=== PATIENT | male | born 1965 | race Caucasian/White ===

== ENCOUNTER 2018-12-20 08:41 | Inpatient (IN) | payer BC ==
--- NOTE | 2018-12-20 08:53 | EKG REPORT ---
SEVERITY:- NORMAL ECG - SINUS RHYTHM : Confirmed by: Chelita Lora MD 20-Dec-2018 08:53:07
--- NOTE | 2018-12-20 09:05 | ER Document Report ---
ED General - General Chief Complaint: Chest Pain Stated Complaint: DIFFICULTY BREATHING Time Seen by Provider: 12/20/18 09:04 - HPI Notes: 53 y/o presenting to ED for evaluation of chest pain and shortness of breath he has a h/o asthma but denies any cardiac history w/ recent negative stress testing and echocardiogram done as outpatient he denies leg swelling he tells me he started feeling poorly yesterday and worsened overnight his rescue inhaler did not change his symptoms - Related Data Allergies/Adverse Reactions: codeine Allergy (Verified 12/20/18 08:42) Past Medical History - Social History Smoking Status: Unknown if Ever Smoked Family History: Reviewed & Not Pertinent Review of Systems - Review of Systems Constitutional: No symptoms reported EENT: No symptoms reported Cardiovascular: Chest pain Respiratory: Cough, Hurts to breathe, Short of breath Gastrointestinal: No symptoms reported Genitourinary: No symptoms reported Male Genitourinary: No symptoms reported Musculoskeletal: No symptoms reported Skin: No symptoms reported Hematologic/Lymphatic: No symptoms reported Neurological/Psychological: No symptoms reported Physical Exam - Vital signs Vitals: Temp Pulse Resp BP Pulse Ox 97.7 F 85 16 76/54 L 97 12/20/18 08:58 12/20/18 08:58 12/20/18 08:58 12/20/18 08:58 12/20/18 08:58 Interpretation: Normal - General General appearance: Alert, Other - appears uncomfortable - HEENT Head: Normocephalic, Atraumatic Eyes: Normal Pupils: PERRL - Respiratory Respiratory status: No respiratory distress Chest status: Nontender Breath sounds: Normal Chest palpation: Normal - Cardiovascular Rhythm: Regular Heart sounds: Normal auscultation Murmur: No - Abdominal Inspection: Normal Distension: No distension Bowel sounds: Normal Tenderness: Nontender Organomegaly: No organomegaly - Back Back: Normal, Nontender - Extremities General upper extremity: Normal inspection, Nontender, Normal color, Normal ROM, Normal temperature General lower extremity: Normal inspection, Nontender, Normal color, Normal ROM, Normal temperature, Normal weight bearing. No: Cheyenne's sign - Neurological Neuro grossly intact: Yes Cognition: Normal Orientation: AAOx4 Chris Coma Scale Eye Opening: Spontaneous [place] Coma Scale Verbal: Oriented [place] Coma Scale Motor: Obeys Commands Chris Coma Scale Total: 15 Speech: Normal Motor strength normal: LUE, RUE, LLE, RLE Sensory: Normal - Psychological Associated symptoms: Normal affect, Normal mood - Skin Skin Temperature: Warm Skin Moisture: Dry Skin Color: Normal Course - Re-evaluation Re-evalutation: 12/20/18 09:12 hypotensive with sob and chest pain will obtain CTA to evaluate for PE IVF bolus ordered as well as inhaler and steroid his lungs however are remarkably clear on exam 12/20/18 12:04 patient is septic from pneumonia bp improved w/ ivf abx started in ED admit requested - Vital Signs Vital signs: Temp Pulse Resp BP Pulse Ox 97.7 F 85 29 H 88/74 L 93 12/20/18 08:58 12/20/18 08:58 12/20/18 11:10 12/20/18 11:10 12/20/18 11:10 - Laboratory Result Diagrams: 12/20/18 07:12 12/20/18 07:12 Laboratory results interpreted by me: 12/20/18 12/20/18 12/20/18 07:12 07:12 07:12 WBC 17.1 H Band Neutrophils % 10 H Lymphocytes % (Manual) 8 L Abs Neuts (Manual) 14.5 H Potassium 3.5 L BUN 33 H Creatinine 1.81 H Est GFR ( Amer) 48 L Est GFR (MDRD) Non-Af 39 L Glucose 147 H Lactic Acid Total Bilirubin 2.1 H Creatine Kinase 276 H NT-Pro-B Natriuret Pep 1320 H 12/20/18 09:33 WBC Band Neutrophils % Lymphocytes % (Manual) Abs Neuts (Manual) Potassium BUN Creatinine Est GFR ( Amer) Est GFR (MDRD) Non-Af Glucose Lactic Acid 3.1 H Total Bilirubin Creatine Kinase NT-Pro-B Natriuret Pep - Diagnostic Test Radiology reviewed: Reports reviewed - EKG Interpretation by Me EKG shows normal: Sinus rhythm Rate: Normal Rhythm: NSR Additional EKG results interpreted by me: 12/20/18 09:[address] or T wave changes - Consults No standard instances Time consulted: 12:05 - hospitalist called Reason for consultation: 12/20/18 12:05 pneumonia/sepsis Critical Care Note - Critical Care Note Total time excluding time spent on procedures (mins): 40 Comments: patient is septic requiring large volume ivf resuscitation and antibiotic initiation in ED. he also required supplemental oxygen to support maintaining a sat >90 Discharge - Discharge Clinical Impression: Sepsis associated hypotension, Hypoxia Pneumonia Qualifiers: Pneumonia type: due to unspecified organism Laterality: left Lung location: lower lobe of lung Qualified Code(s): J18.1 - Lobar pneumonia, unspecified organism Condition: Stable Disposition: ADMITTED INPATIENT Admitting Provider: Isabella (Hospitalist) Unit Admitted: [facility]
[2018-12-20] MEDS ORDERED: NORMAL SALINE 1000 ML 1,000 ML IV ONE ×3 (09:10→11:13)
[2018-12-20] MEDS ORDERED: METHYLPREDNISOLONE INJ 125 MG/2 ML SDV IV ONE (09:13)
[2018-12-20] MEDS ORDERED: IPRATROPIUM/ALBUTEROL 0.5-2.5 MG/3 ML AMPUL NEB ONE ×3 (09:14→12:42)
--- NOTE | 2018-12-20 09:36 | RADIOLOGY REPORT (SQ) ---
EXAM DESCRIPTION: CHEST SINGLE VIEW COMPLETED DATE/TIME: 12/20/2018 9:17 am REASON FOR STUDY: sob COMPARISON: None. EXAM PARAMETERS: NUMBER OF VIEWS: One view. TECHNIQUE: Single frontal radiographic view of the chest acquired. RADIATION DOSE: NA LIMITATIONS: None. FINDINGS: LUNGS AND PLEURA: Heterogeneous opacity of the left lung base. Possible small left pleura l effusion. MEDIASTINUM AND HILAR STRUCTURES: No masses. Contour normal. HEART AND VASCULAR STRUCTURES: Cardiomegaly. BONES: No acute findings. HARDWARE: None in the chest. OTHER: No other significant finding. IMPRESSION: Heterogeneous opacity of the left lung base, concerning for infection or aspiration. Po ssible small left pleural effusion. Cardiomegaly. TECHNICAL DOCUMENTATION: JOB ID: [id number] [employer]- All Rights Reserved Reading location - IP/workstation name: [email or web address]
[2018-12-20] MEDS ORDERED: VANCOMYCIN HCL INJ 1000 MG VIAL IV ONE (10:11)
[2018-12-20] MEDS ORDERED: PIPERACILLIN/TAZOBACTAM 4.5 GM VIAL IV ONE (10:11)
[2018-12-20 10:13] LABS: HEMATOCRIT 40.5 % (37.9-51.0); HEMOGLOBIN 13.6 g/dL (13.5-17.0); MEAN CORPUSCULAR HEMOGLOBIN 29.8 pg (27.0-33.4); MEAN CORPUSCULAR HGB CONC 33.5 g/dL (32.0-36.0); MEAN CORPUSCULAR VOLUME 89 fl (80-97); PLATELET COUNT 155 10^3/uL (150-450); RED BLOOD COUNT 4.57 10^6/uL (4.35-5.55); RED CELL DISTRIBUTION WIDTH 13.8 % (11.5-14.0); WHITE BLOOD COUNT 17.1 10^3/uL (4.0-10.5)
[2018-12-20] MEDS ORDERED: FENTANYL CITRATE INJ/PF 100 MCG/2 ML AMPUL IV ONE (10:14)
[2018-12-20 10:27] LABS: ALBUMIN 3.8 g/dL (3.5-5.0); ALKALINE PHOSPHATASE 76 U/L (38-126); ANION GAP 13 (5-19); ASPARTATE AMINO TRANSFERASE 39 U/L (17-59); BILIRUBIN,DIRECT 0.4 mg/dL (0.0-0.4); BILIRUBIN,TOTAL 2.1 mg/dL (0.2-1.3); BLOOD UREA NITROGEN 33 mg/dL (7-20); CALCIUM 9.7 mg/dL (8.4-10.2); CARBON DIOXIDE 26 mmol/L (22-30); CHLORIDE 101 mmol/L (98-107); CREATINE KINASE 276 U/L (55-170); GLUCOSE 147 mg/dL (75-110); POTASSIUM 3.5 mmol/L (3.6-5.0); TOTAL PROTEIN 6.4 g/dL (6.3-8.2)
[2018-12-20 10:36] LABS: CREATINE KINASE MB 4.19 ng/mL (<4.55); NT PRO BNP 1320 pg/mL (5-900)
[2018-12-20 10:37] LABS: TROPONIN I < 0.012 ng/mL
[2018-12-20 11:19] LABS: ABSOLUTE LYMPHOCYTES# (MANUAL) 1.5 10^3/uL (0.5-4.7); BAND NEUTROPHILS % (MANUAL) 10 % (3-5); BASOPHILS % (MANUAL) 0 % (0-2); EOSINOPHILS % (MANUAL) 0 % (0-6); LYMPHOCYTES % (MANUAL) 8 % (13-45); MONOCYTES % (MANUAL) 6 % (3-13); OVALOCYTES 1+; PLATELET COMMENT ADEQUATE; POIKILOCYTOSIS 1+; SEGMENTED NEUTROPHILS % (MAN) 75 % (42-78); TOTAL CELLS COUNTED 100
--- NOTE | 2018-12-20 11:57 | RADIOLOGY REPORT (SQ) ---
EXAM DESCRIPTION: CTA CHEST COMPLETED DATE/TIME: 12/20/2018 11:37 am REASON FOR STUDY: chest pain/sob COMPARISON: AP view of the chest from 12/20/2018 TECHNIQUE: CT scan of the chest performed using helical scanning technique with dynamic intravenous contrast injection. Images reviewed with lung, soft tissue and bone windows. Reconstructed coronal and sagittal MPR images reviewed. Additional 3 dimensional post-processing performed to develop Maximal Intensity Projection images (VT P). All images stored on PACS. All CT scanners at this facility use dose modulation, iterative reconstruction, and/or weight based d osing when appropriate to reduce radiation dose to as low as reasonably achievable (ALARA). [facility]: Dose Right [facility]: CareDose [facility]: Dose Right [facility]: Teradose 4D [facility]: Zootcard CONTRAST TYPE AND DOSE: contrast/concentration: Isovue 300.00 mg/ml; Total Contrast Delivered: 68.0 ml; Total Saline Delivered: 80.0 ml Contrast bolus optimized for the pulmonary arteries. Not diagnostic for the aorta. RENAL FUNCTION: Creatinine 1.81 milligrams/deciliter RADIATION DOSE: CT Rad equipment meets quality standard of care and radiation dose reduction techniq ues were employed. CTDIvol: 19.8 - 20.2 mGy. DLP: 706 mGy-cm. . LIMITATIONS: None. FINDINGS: LUNGS AND PLEURA: Alveolar consolidation in the left lower lobe with interspersed air bron chograms and without associated volume loss. The trachea and main bronchi are patent. There is no p ulmonary nodule or mass. There is no pleural effusion, calcification or thickening. AORTA AND GREAT VESSELS: No aneurysmal dilatation or dissection. HEART: No cardiomegaly or pericardial effusion. PULMONARY ARTERIES: No pulmonary embolus. HILAR AND MEDIASTINAL STRUCTURES: Enlarged left hilar lymph nodes measuring up to 11 mm in short axis diameter. There is no enlarged mediastinal adenopathy. HARDWARE: None in the chest. UPPER ABDOMEN: No acute findings. THYROID AND OTHER SOFT TISSUES: No mass or adenopathy. BONES: No acute findings. 3D MIPS: Confirm above findings. OTHER: No other finding. IMPRESSION: Alveolar consolidation in the left lower lobe concerning for pneumonia. No pulmonary em bolus. COMMENT: Quality ID # [id number]: Final reports with documentation of one or more dose reduction techniques (e.g., Automated exposure control, adjustment of the mA and/or kV according to patient size, use of iterative reconstruction technique) TECHNICAL DOCUMENTATION: JOB ID: [id number] [employer]- All Rights Reserved Reading location - IP/workstation name: [email or web address]
[2018-12-20] MEDS ORDERED: ACETAMINOPHEN 325 MG TABLET PO PRN (13:06)
[2018-12-20] MEDS ORDERED: NORMAL SALINE 1000 ML 1,000 ML IV PRN (13:06)
[2018-12-20] MEDS ORDERED: ACETAMINOPHEN 325 MG SUPP.RECT PR PRN (13:06)
[2018-12-20 13:20] LABS: ARTERIAL BLOOD BASE EXCESS -4.6 mmol/L; ARTERIAL BLOOD FIO2 4L; ARTERIAL BLOOD H2CO3 1.02 mmol/L (1.05-1.35); ARTERIAL BLOOD HCO3 19.6 mmol/L (20-24); ARTERIAL BLOOD O2 SATURATION 92.1 % (94-98); ARTERIAL BLOOD PCO2 33.8 mmHg (35-45); ARTERIAL BLOOD PH 7.38 (7.35-7.45); ARTERIAL BLOOD PO2 63.3 mmHg (80-100); ARTERIAL BLOOD TOTAL CO2 20.7 mmol/L (23-27)
[2018-12-20] MEDS ORDERED: VANCOMYCIN HCL 0 MG in DEXTROSE 5%-WATER 250 ML IV NR (13:30)
[2018-12-20] MEDS: IPRATROPIUM/ALBUTEROL 0.5-2.5 MG/3 ML AMPUL NEB SCH ×2 (14:18→20:45)
[2018-12-20 14:41] LABS: CHOLESTEROL 115.55 mg/dL (0-200); TRIGLYCERIDES 77 mg/dL (<150)
[2018-12-20 14:51] LABS: DIRECT LDL 65 mg/dL (<100)
[2018-12-20 16:03] LABS: APPEARANCE,URINE SLIGHTLY-CLOUDY; BILIRUBIN,URINE NEGATIVE (NEGATIVE); COLOR,URINE YELLOW; GLUCOSE, URINE NEGATIVE (NEGATIVE); KETONES,URINE NEGATIVE (NEGATIVE); LEUKOCYTE ESTERASE,URINE NEGATIVE (NEGATIVE); NITRITE,URINE NEGATIVE (NEGATIVE); PROTEIN,URINE NEGATIVE (NEGATIVE); URINE SPECIFIC GRAVITY 1.042; UROBILINOGEN,URINE NEGATIVE mg/dL (<2.0)
[2018-12-20 16:50] LABS: A TYPE INFLUENZA AG NEGATIVE (NEGATIVE); B INFLUENZA AG NEGATIVE (NEGATIVE)
[2018-12-20] MEDS: PANTOPRAZOLE SODIUM 40 MG TABLET.DR PO SCH (18:12)
[2018-12-20] MEDS: DOCUSATE SODIUM 100 MG CAPSULE PO SCH (18:12)
[2018-12-20] MEDS: PIPERACILLIN SODIUM/TAZOBACTAM 4.5 GM in NORMAL SALINE 100 ML IV SCH (18:16)
--- NOTE | 2018-12-20 18:55 | PDOC H&P ---
History of Present Illness Admission Date/PCP: 12/20/18 12:36 History of Present Illness: FRANTZ WORTHINGTON is a 53 year old male past medical history of asthma on inhalers, never been intubated not on home O2, had recent cardiac work-up, with negative stress test and echo. Presented to ED complaining of shortness of breath, fever, chills nonproductive cough and back pain x1 day, denies any sick contacts or recent travel. In ED he was noted to be hypotensive, hypoxic, with elevated lactic acid. He was started on vancomycin, Zosyn, 3 L NS and hospitalist was consulted for admission. Lactic acid 3.1, 4.3, troponins negative. Lipid panel WNL. TSH WNL. proBNP 1320, WBC 17.1, Plt 155. pH 7.38, PCO2 33.8, PO2 63.3, PO2 89 on RA. RR 19-36, SBP 80s. CTA chest positive for little consolidation in the left lower lobe concerning for pneumonia. No pulmonary embolus. Past Medical History Pulmonary Medical History: Reports: Asthma Social History Smoking Status: Never Smoker Frequency of Alcohol Use: None Hx Recreational Drug Use: No Drugs: None Hx Prescription Drug Abuse: No Family History Family History: Reviewed & Not Pertinent Parental Family History Reviewed: Yes Children Family History Reviewed: Yes Sibling(s) Family History Reviewed.: Yes Medication/Allergy Home Medications: Albuterol Sulfate [Proair Hfa Inhalation Aerosol 8.5 gm Mdi] 1 puff IH Q4 PRN 12/20/18 Budesonide/Formoterol Fumarate [Symbicort Hfa 160-4.5 Mcg Inhaler 6 gm] 2 puff IH Q12 12/20/18 Ergocalciferol (Vitamin D2) [Vitamin D2] 2,000 unit PO DAILY 12/20/18 Fluticasone Propionate [Flovent HFA 220 mcg MDI] 1 puff IH BID 12/20/18 Lisinopril/Hydrochlorothiazide [Lisinopril-Hctz 20-12.5 mg Tab] 1 each PO DAILY 12/20/18 Montelukast Sodium [Singulair 10 mg Tablet] 10 mg PO QHS 12/20/18 Naproxen Sodium [Aleve] 220 mg PO DAILYP PRN 12/20/18 Sertraline HCl [Zoloft] 100 mg PO DAILY 12/20/18 Allergies/Adverse Reactions: codeine Allergy (Verified 12/20/18 08:42) nut - unspecified Allergy (Verified 12/20/18 17:40) tomatoes Allergy (Uncoded 12/20/18 17:40) Review of Systems Review of Systems: as per hpi Physical Exam Vital Signs: Temp Pulse Resp BP Pulse Ox 97.7 F 87 29 H 92/67 L 96 12/20/18 08:58 12/20/18 14:18 12/20/18 15:30 12/20/18 15:30 12/20/18 15:30 Intake & Output 12/19/18 12/20/18 12/21/18 06:59 06:59 06:59 Intake Total 3000 Balance 3000 Weight 97.2 kg General appearance: PRESENT: mild distress, obese Head exam: PRESENT: atraumatic, normocephalic Respiratory exam: PRESENT: clear to auscultation antoine, prolonged expiratory phas, symmetrical, tachypnea. ABSENT: rales, rhonchi, wheezes Extremities exam: PRESENT: full ROM. ABSENT: calf tenderness, clubbing, pedal edema Neurological exam: PRESENT: alert, awake, oriented to person, oriented to place, oriented to time, oriented to situation, CN II-XII grossly intact. ABSENT: motor sensory deficit Skin exam: PRESENT: dry, intact, warm. ABSENT: cyanosis, rash Results Laboratory Results: 12/20/18 07:12 12/20/18 07:12 12/20/18 12/20/18 12/20/18 07:12 07:12 07:12 WBC 17.1 H RBC 4.57 Hgb 13.6 Hct 40.5 MCV 89 MCH 29.8 MCHC 33.5 RDW 13.8 Plt Count 155 Seg Neutrophils % Not Reportable Carbonic Acid HCO3/H2CO3 Ratio ABG pH ABG pCO2 ABG pO2 ABG HCO3 ABG O2 Saturation ABG Base Excess FiO2 Sodium 139.5 Potassium 3.5 L Chloride 101 Carbon Dioxide 26 Anion Gap 13 BUN 33 H Creatinine 1.81 H Est GFR ( Amer) 48 L Glucose 147 H Lactic Acid Calcium 9.7 Total Bilirubin 2.1 H AST 39 Alkaline Phosphatase 76 Total Protein 6.4 Albumin 3.8 Triglycerides 77 Cholesterol 115.55 LDL Cholesterol Direct 65 VLDL Cholesterol 15.0 HDL Cholesterol 46 TSH Urine Color Urine Appearance Urine pH Ur Specific [place] Urine Protein Urine Glucose (UA) Urine Ketones Urine Blood Urine Nitrite Ur Leukocyte Esterase Urine WBC (Auto) Urine RBC (Auto) 12/20/18 12/20/18 12/20/18 07:12 09:33 13:06 WBC RBC Hgb Hct MCV MCH MCHC RDW Plt Count Seg Neutrophils % Carbonic Acid 1.02 L HCO3/H2CO3 Ratio 19:1 ABG pH 7.38 ABG pCO2 33.8 L ABG pO2 63.3 L ABG HCO3 19.6 L ABG O2 Saturation 92.1 L ABG Base Excess -4.6 FiO2 4L Sodium Potassium Chloride Carbon Dioxide Anion Gap BUN Creatinine Est GFR ( Amer) Glucose Lactic Acid 3.1 H Calcium Total Bilirubin AST Alkaline Phosphatase Total Protein Albumin Triglycerides Cholesterol LDL Cholesterol Direct VLDL Cholesterol HDL Cholesterol TSH 1.28 Urine Color Urine Appearance Urine pH Ur Specific [place] Urine Protein Urine Glucose (UA) Urine Ketones Urine Blood Urine Nitrite Ur Leukocyte Esterase Urine WBC (Auto) Urine RBC (Auto) 12/20/18 12/20/18 12/20/18 13:58 15:02 15:40 WBC RBC Hgb Hct MCV MCH MCHC RDW Plt Count Seg Neutrophils % Carbonic Acid HCO3/H2CO3 Ratio ABG pH ABG pCO2 ABG pO2 ABG HCO3 ABG O2 Saturation ABG Base Excess FiO2 Sodium Potassium Chloride Carbon Dioxide Anion Gap BUN Creatinine Est GFR ( Amer) Glucose Lactic Acid 3.1 H 4.3 H Calcium Total Bilirubin AST Alkaline Phosphatase Total Protein Albumin Triglycerides Cholesterol LDL Cholesterol Direct VLDL Cholesterol HDL Cholesterol TSH Urine Color YELLOW Urine Appearance SLIGHTLY-CLOUDY Urine pH 5.0 Ur Specific [place] 1.042 Urine Protein NEGATIVE Urine Glucose (UA) NEGATIVE Urine Ketones NEGATIVE Urine Blood NEGATIVE Urine Nitrite NEGATIVE Ur Leukocyte Esterase NEGATIVE Urine WBC (Auto) 4 Urine RBC (Auto) 2 12/20/18 12/20/18 12/20/18 07:12 07:12 15:02 Creatine Kinase 276 H CK-MB (CK-2) 4.19 Troponin I < 0.012 < 0.012 NT-Pro-B Natriuret Pep 1320 H Impressions: Chest X-Ray 12/20/18 09:04 IMPRESSION: Heterogeneous opacity of the left lung base, concerning for infection or aspiration. Possible small left pleural effusion. Cardiomegaly. Chest/Abdomen CTA 12/20/18 09:11 IMPRESSION: Alveolar consolidation in the left lower lobe concerning for pneumonia. No pulmonary embolus. Assessment and Plan - Diagnosis (1) Sepsis Is this a current diagnosis for this admission?: Yes Plan: Evidenced by Lactic acid 3.1, 4.3, troponins negative. WBC 17.1, Plt 155. pH 7.38, PCO2 33.8, PO2 63.3, PO2 89 on RA. RR 19-36, SBP 80s. Due to underlying pneumonia. Admit to IMCU, volume resuscitation guided by volume status, trend lactic acid, empiric IV antibiotics, sputum culture, blood culture (2) Acute and chronic respiratory failure with hypoxia Is this a current diagnosis for this admission?: Yes Plan: Due to underlying pneumonia complicated by underlying asthma. Admit to IMCU, supplemental oxygen, duo nebs, IV steroids, flutter valve, incentive spirometry, empiric IV antibiotics. (3) Pneumonia Qualifiers: Pneumonia type: due to unspecified organism Laterality: left Lung location: lower lobe of lung Qualified Code(s): J18.1 - Lobar pneumonia, unspecified organism Is this a current diagnosis for this admission?: Yes Plan: As per #2. (4) Obesity Qualifiers: Body mass index: BMI 31.0-31.9 Is this a current diagnosis for this admission?: Yes Plan: TSH WNL. Diet and lifestyle modification recommended. (5) Acute kidney injury superimposed on CKD Is this a current diagnosis for this admission?: Yes
[2018-12-20] MEDS: VANCOMYCIN HCL 1,000 MG in DEXTROSE 5%-WATER 250 ML IV SCH (22:07)
[2018-12-20] MEDS: METHYLPREDNISOLONE INJ 40 MG/1 ML SDV IV SCH (22:07)
[2018-12-20] MEDS: NORMAL SALINE 1000 ML 1,000 ML IV PRN (22:08)
[2018-12-21] MEDS: PIPERACILLIN SODIUM/TAZOBACTAM 4.5 GM in NORMAL SALINE 100 ML IV SCH ×4 (00:15→17:12)
[2018-12-21] MEDS: IPRATROPIUM/ALBUTEROL 0.5-2.5 MG/3 ML AMPUL NEB SCH ×4 (02:35→20:57)
[2018-12-21] MEDS: METHYLPREDNISOLONE INJ 40 MG/1 ML SDV IV SCH ×3 (05:48→21:07)
[2018-12-21] MEDS: PANTOPRAZOLE SODIUM 40 MG TABLET.DR PO SCH ×2 (05:49→16:44)
[2018-12-21] MEDS: NORMAL SALINE 1000 ML 1,000 ML IV PRN ×2 (05:49→21:07)
--- NOTE | 2018-12-21 08:16 | RADIOLOGY REPORT (SQ) ---
EXAM DESCRIPTION: U/S RETROPERITON (RENAL/AORTA) COMPLETED DATE/TIME: 12/21/2018 7:57 am REASON FOR STUDY: kenney COMPARISON: None. TECHNIQUE: Dynamic and static grayscale images acquired of the kidneys and bladder and recorded on P ACS. Additional selected color Doppler and spectral images recorded. LIMITATIONS: None. FINDINGS: RIGHT KIDNEY: Normal size. Normal echogenicity. No solid or suspicious masses. No hydronep hrosis. No calcifications. LEFT KIDNEY: Normal size. Normal echogenicity. No solid or suspicious masses. No hydronephrosis. No calcifications. BLADDER: No masses. OTHER FINDINGS: No other significant finding. IMPRESSION: NORMAL RENAL AND BLADDER ULTRASOUND. TECHNICAL DOCUMENTATION: JOB ID: [id number] [employer]- All Rights Reserved Reading location - IP/workstation name: [email or web address]
[2018-12-21 09:08] LABS: HEMATOCRIT 34.1 % (37.9-51.0); MEAN CORPUSCULAR HEMOGLOBIN 29.4 pg (27.0-33.4); MEAN CORPUSCULAR HGB CONC 33.6 g/dL (32.0-36.0); MEAN CORPUSCULAR VOLUME 88 fl (80-97); PLATELET COUNT 139 10^3/uL (150-450); RED BLOOD COUNT 3.88 10^6/uL (4.35-5.55); WHITE BLOOD COUNT 15.7 10^3/uL (4.0-10.5)
[2018-12-21 09:14] LABS: ALBUMIN 3.1 g/dL (3.5-5.0); ALKALINE PHOSPHATASE 46 U/L (38-126); ANION GAP 10 (5-19); ASPARTATE AMINO TRANSFERASE 28 U/L (17-59); BILIRUBIN,DIRECT 0.3 mg/dL (0.0-0.4); BILIRUBIN,TOTAL 0.9 mg/dL (0.2-1.3); BLOOD UREA NITROGEN 28 mg/dL (7-20); CALCIUM 8.7 mg/dL (8.4-10.2); CARBON DIOXIDE 22 mmol/L (22-30); CHLORIDE 108 mmol/L (98-107); GLUCOSE 200 mg/dL (75-110); POTASSIUM 3.4 mmol/L (3.6-5.0); TOTAL PROTEIN 5.5 g/dL (6.3-8.2)
[2018-12-21 10:07] LABS: HEMOGLOBIN 11.4 g/dL (13.5-17.0)
[2018-12-21 10:09] LABS: ABSOLUTE LYMPHOCYTES# (MANUAL) 1.1 10^3/uL (0.5-4.7); ABSOLUTE MONOCYTES # (MANUAL) 1.1 10^3/uL (0.1-1.4); ANISOCYTOSIS SLIGHT; BAND NEUTROPHILS % (MANUAL) 7 % (3-5); BASOPHILS % (MANUAL) 0 % (0-2); EOSINOPHILS % (MANUAL) 0 % (0-6); LYMPHOCYTES % (MANUAL) 7 % (13-45); MONOCYTES % (MANUAL) 7 % (3-13); PLATELET COMMENT DECREASED; SEGMENTED NEUTROPHILS % (MAN) 79 % (42-78); TOTAL CELLS COUNTED 100
[2018-12-21] MEDS: DOCUSATE SODIUM 100 MG CAPSULE PO SCH ×2 (10:15→17:12)
[2018-12-21] MEDS: VANCOMYCIN HCL 1,000 MG in DEXTROSE 5%-WATER 250 ML IV SCH ×2 (10:15→21:10)
[2018-12-21] MEDS ORDERED: DEXTROSE 50%-WATER 25 GM/50 ML DISP.SYRIN IV PRN ×2 (10:27)
[2018-12-21] MEDS ORDERED: GLUCAGON,HUMAN RECOMB 1 MG INJ IM PRN (10:27)
[2018-12-21] MEDS ORDERED: DEXTROSE 40% GEL 15 GM TUBE PO PRN ×2 (10:27)
--- NOTE | 2018-12-21 10:37 | PDOC PROGRESS REPORT ---
Subjective Progress Note for:: 12/21/18 Subjective:: FRANTZ WORTHINGTON is a 53 year old male past medical history of asthma on inhalers, never been intubated not on home O2, had recent cardiac work-up, with negative stress test and echo. Presented to ED complaining of shortness of breath, fever, chills nonproductive cough and back pain x1 day, denies any sick contacts or recent travel. In ED he was noted to be hypotensive, hypoxic, with elevated lactic acid. He was started on vancomycin, Zosyn, 3 L NS and hospitalist was consulted for admission. Lactic acid 3.1, 4.3, troponins negative. Lipid panel WNL. TSH WNL. proBNP 1320, WBC 17.1, Plt 155. pH 7.38, PCO2 33.8, PO2 63.3, PO2 89 on RA. RR 19-36, SBP 80s. CTA chest positive for little consolidation in the left lower lobe concerning for pneumonia. No pulmonary embolus. 12/21/2018. Significant improvement of his symptoms since yesterday. Patient is comfortably sitting in bed in no apparent distress, back pain has resolved, denies any fever, chills, nausea, vomiting, diarrhea, constipation or any urinary symptoms. SPO2 WNL on RA. SBP low normal asymptomatic. Reason For Visit: SEPSIS Physical Exam Vital Signs: Temp Pulse Resp BP Pulse Ox 98.3 F 80 18 114/57 L 95 12/21/18 04:19 12/21/18 09:18 12/21/18 09:18 12/21/18 04:19 12/21/18 09:18 Intake & Output 12/20/18 12/21/18 12/22/18 06:59 06:59 06:59 Intake Total 4382 Balance 4382 Weight 103.1 kg General appearance: PRESENT: no acute distress, well-developed, well-nourished Head exam: PRESENT: atraumatic, normocephalic Eye exam: PRESENT: conjunctiva pink, EOMI, PERRLA. ABSENT: scleral icterus Ear exam: PRESENT: normal external ear exam Mouth exam: PRESENT: moist, tongue midline Neck exam: ABSENT: carotid bruit, JVD, lymphadenopathy, thyromegaly Respiratory exam: PRESENT: clear to auscultation antoine, prolonged expiratory phas, unlabored. ABSENT: rales, rhonchi, wheezes Cardiovascular exam: PRESENT: RRR. ABSENT: diastolic murmur, rubs, systolic murmur Pulses: PRESENT: normal dorsalis pedis pul Vascular exam: PRESENT: normal capillary refill GI/Abdominal exam: PRESENT: normal bowel sounds, soft. ABSENT: distended, guarding, mass, organolmegaly, rebound, tenderness Rectal exam: PRESENT: deferred Extremities exam: PRESENT: full ROM. ABSENT: calf tenderness, clubbing, pedal edema Neurological exam: PRESENT: alert, awake, oriented to person, oriented to place, oriented to time, oriented to situation, CN II-XII grossly intact. ABSENT: motor sensory deficit Psychiatric exam: PRESENT: appropriate affect, normal mood. ABSENT: homicidal ideation, suicidal ideation Skin exam: PRESENT: dry, intact, warm. ABSENT: cyanosis, rash Results Laboratory Results: 12/21/18 08:19 12/21/18 08:19 12/20/18 12/20/18 12/20/18 07:12 07:12 07:12 WBC 17.1 H RBC 4.57 Hgb 13.6 Hct 40.5 MCV 89 MCH 29.8 MCHC 33.5 RDW 13.8 Plt Count 155 Seg Neutrophils % Not Reportable Carbonic Acid HCO3/H2CO3 Ratio ABG pH ABG pCO2 ABG pO2 ABG HCO3 ABG O2 Saturation ABG Base Excess FiO2 Sodium 139.5 Potassium 3.5 L Chloride 101 Carbon Dioxide 26 Anion Gap 13 BUN 33 H Creatinine 1.81 H Est GFR ( Amer) 48 L Glucose 147 H Lactic Acid Calcium 9.7 Total Bilirubin 2.1 H AST 39 Alkaline Phosphatase 76 Total Protein 6.4 Albumin 3.8 Triglycerides 77 Cholesterol 115.55 LDL Cholesterol Direct 65 VLDL Cholesterol 15.0 HDL Cholesterol 46 TSH Urine Color Urine Appearance Urine pH Ur Specific [place] Urine Protein Urine Glucose (UA) Urine Ketones Urine Blood Urine Nitrite Ur Leukocyte Esterase Urine WBC (Auto) Urine RBC (Auto) 12/20/18 12/20/18 12/20/18 07:12 13:06 13:58 WBC RBC Hgb Hct MCV MCH MCHC RDW Plt Count Seg Neutrophils % Carbonic Acid 1.02 L HCO3/H2CO3 Ratio 19:1 ABG pH 7.38 ABG pCO2 33.8 L ABG pO2 63.3 L ABG HCO3 19.6 L ABG O2 Saturation 92.1 L ABG Base Excess -4.6 FiO2 4L Sodium Potassium Chloride Carbon Dioxide Anion Gap BUN Creatinine Est GFR ( Amer) Glucose Lactic Acid 3.1 H Calcium Total Bilirubin AST Alkaline Phosphatase Total Protein Albumin Triglycerides Cholesterol LDL Cholesterol Direct VLDL Cholesterol HDL Cholesterol TSH 1.28 Urine Color Urine Appearance Urine pH Ur Specific [place] Urine Protein Urine Glucose (UA) Urine Ketones Urine Blood Urine Nitrite Ur Leukocyte Esterase Urine WBC (Auto) Urine RBC (Auto) 12/20/18 12/20/18 12/21/18 15:02 15:40 00:38 WBC RBC Hgb Hct MCV MCH MCHC RDW Plt Count Seg Neutrophils % Carbonic Acid HCO3/H2CO3 Ratio ABG pH ABG pCO2 ABG pO2 ABG HCO3 ABG O2 Saturation ABG Base Excess FiO2 Sodium Potassium Chloride Carbon Dioxide Anion Gap BUN Creatinine Est GFR ( Amer) Glucose Lactic Acid 4.3 H 3.3 H Calcium Total Bilirubin AST Alkaline Phosphatase Total Protein Albumin Triglycerides Cholesterol LDL Cholesterol Direct VLDL Cholesterol HDL Cholesterol TSH Urine Color YELLOW Urine Appearance SLIGHTLY-CLOUDY Urine pH 5.0 Ur Specific [place] 1.042 Urine Protein NEGATIVE Urine Glucose (UA) NEGATIVE Urine Ketones NEGATIVE Urine Blood NEGATIVE Urine Nitrite NEGATIVE Ur Leukocyte Esterase NEGATIVE Urine WBC (Auto) 4 Urine RBC (Auto) 2 12/21/18 12/21/18 08:19 08:19 WBC 15.7 H RBC 3.88 L Hgb 11.4 L D Hct 34.1 L MCV 88 MCH 29.4 MCHC 33.6 RDW 14.0 Plt Count 139 L Seg Neutrophils % Not Reportable Carbonic Acid HCO3/H2CO3 Ratio ABG pH ABG pCO2 ABG pO2 ABG HCO3 ABG O2 Saturation ABG Base Excess FiO2 Sodium 139.5 Potassium 3.4 L Chloride 108 H Carbon Dioxide 22 Anion Gap 10 BUN 28 H Creatinine 1.43 H Est GFR ( Amer) > 60 Glucose 200 H Lactic Acid Calcium 8.7 Total Bilirubin 0.9 AST 28 Alkaline Phosphatase 46 Total Protein 5.5 L Albumin 3.1 L Triglycerides Cholesterol LDL Cholesterol Direct VLDL Cholesterol HDL Cholesterol TSH Urine Color Urine Appearance Urine pH Ur Specific [place] Urine Protein Urine Glucose (UA) Urine Ketones Urine Blood Urine Nitrite Ur Leukocyte Esterase Urine WBC (Auto) Urine RBC (Auto) 12/20/18 12/20/18 12/20/18 07:12 07:12 15:02 Creatine Kinase 276 H CK-MB (CK-2) 4.19 Troponin I < 0.012 < 0.012 NT-Pro-B Natriuret Pep 1320 H Impressions: Renal Ultrasound 12/20/18 00:00 IMPRESSION: NORMAL RENAL AND BLADDER ULTRASOUND. Chest X-Ray 12/20/18 09:04 IMPRESSION: Heterogeneous opacity of the left lung base, concerning for infection or aspiration. Possible small left pleural effusion. Cardiomegaly. Chest/Abdomen CTA 12/20/18 09:11 IMPRESSION: Alveolar consolidation in the left lower lobe concerning for pneumonia. No pulmonary embolus. Assessment and Plan - Diagnosis (1) Sepsis Is this a current diagnosis for this admission?: Yes Plan: WBC WNL. Lactic acid still elevated. SBP is 90s asymptomatic. Lactic acid 3.1, 4.3, 3.4 Evidenced by WBC 17.1, Plt 155 pH 7.38, PCO2 33.8, PO2 63.3, PO2 89 on RA. RR 19-36, SBP 80s on admission. Due to underlying pneumonia. Day 2 IV antibiotics. Due to IV vancomycin renally dosed. Day 2 IV Zosyn. Cultures no growth so far. Continue telemetry, IV fluids, trend lactic acid, empiric IV antibiotics, sputum culture, blood culture If afebrile and vitals WNL we will switch to p.o. antibiotics and DC home tomorrow. (2) Acute and chronic respiratory failure with hypoxia Is this a current diagnosis for this admission?: Yes Plan: Significant improvement. SPO2 WNL on RA. Due to underlying pneumonia complicated by underlying asthma. Continue telemetry, supplemental oxygen, duo nebs, IV steroids, flutter valve, incentive spirometry, empiric IV antibiotics, LAMA, LABA, ICS. Day 2 IV steroids. (3) Pneumonia Qualifiers: Pneumonia type: due to unspecified organism Laterality: left Lung loca tion: lower lobe of lung Qualified Code(s): J18.1 - Lobar pneumonia, unspecified organism Is this a current diagnosis for this admission?: Yes Plan: As per #2. (4) Obesity Qualifiers: Body mass index: BMI 31.0-31.9 Is this a current diagnosis for this admission?: Yes Plan: TSH WNL. Diet and lifestyle modification recommended. (5) Acute kidney injury superimposed on CKD Is this a current diagnosis for this admission?: Yes Plan: Likely due to sepsis. Prerenal. Endorses history of CKD. No baseline available. Creatinine trending down. Cautious volume resuscitation guided by volume status and electrodes. Avoid nephrotoxic meds. Outpatient PCP and nephrology follow-up. (6) Elevated brain natriuretic peptide (BNP) level Is this a current diagnosis for this admission?: Yes Plan: Denies any history of CAD. proBNP 1320 on admission. Troponins negative. EKG sinus rhythm. Patient sees Dr. Lora as outpatient. As per patient he had a negative echo and a stress test a month ago. Continue treating underlying sepsis and pneumonia. (7) Hyperglycemia Is this a current diagnosis for this admission?: Yes Plan: Hemoglobin A1c 5.1. Denies history of diabetes. This is most likely due to st eroids receiving for underlying asthma exacerbation. We will start on Accu-Chek, hypoglycemia protocol, sliding scale insulin. Outpatient PCP follow-up.
[2018-12-21] MEDS: INSULIN LISPRO 100 UNIT/ML 3 ML VIAL SUBCUT SCH ×3 (12:06→22:05)
[2018-12-21] MEDS: SERTRALINE HCL 50 MG TABLET PO SCH (13:07)
[2018-12-21] MEDS: MONTELUKAST SODIUM 10 MG TABLET PO SCH (21:10)
[2018-12-21 22:36] LABS: VANCOMYCIN,TROUGH 11.1 ug/mL (5.0-20.0)
[2018-12-22] MEDS: PIPERACILLIN SODIUM/TAZOBACTAM 4.5 GM in NORMAL SALINE 100 ML IV SCH ×5 (00:44→23:59)
[2018-12-22] MEDS: IPRATROPIUM/ALBUTEROL 0.5-2.5 MG/3 ML AMPUL NEB SCH ×4 (02:16→20:27)
[2018-12-22] MEDS: METHYLPREDNISOLONE INJ 40 MG/1 ML SDV IV SCH ×3 (05:50→21:57)
[2018-12-22] MEDS: PANTOPRAZOLE SODIUM 40 MG TABLET.DR PO SCH ×2 (05:51→17:32)
[2018-12-22] MEDS: NORMAL SALINE 1000 ML 1,000 ML IV PRN ×2 (06:06→19:00)
[2018-12-22 07:08] LABS: ALBUMIN 2.7 g/dL (3.5-5.0); ALKALINE PHOSPHATASE 51 U/L (38-126); ANION GAP 8 (5-19); ASPARTATE AMINO TRANSFERASE 22 U/L (17-59); BILIRUBIN,DIRECT 0.2 mg/dL (0.0-0.4); BILIRUBIN,TOTAL 0.5 mg/dL (0.2-1.3); BLOOD UREA NITROGEN 33 mg/dL (7-20); CALCIUM 8.7 mg/dL (8.4-10.2); CARBON DIOXIDE 20 mmol/L (22-30); CHLORIDE 110 mmol/L (98-107); GLUCOSE 299 mg/dL (75-110); POTASSIUM 3.7 mmol/L (3.6-5.0); TOTAL PROTEIN 5.4 g/dL (6.3-8.2)
[2018-12-22 07:12] LABS: HEMATOCRIT 32.1 % (37.9-51.0); HEMOGLOBIN 10.9 g/dL (13.5-17.0); MEAN CORPUSCULAR HEMOGLOBIN 29.7 pg (27.0-33.4); MEAN CORPUSCULAR HGB CONC 33.8 g/dL (32.0-36.0); MEAN CORPUSCULAR VOLUME 88 fl (80-97); PLATELET COUNT 142 10^3/uL (150-450); RED BLOOD COUNT 3.66 10^6/uL (4.35-5.55); WHITE BLOOD COUNT 15.6 10^3/uL (4.0-10.5)
[2018-12-22 07:38] LABS: ABSOLUTE LYMPHOCYTES# (MANUAL) 0.3 10^3/uL (0.5-4.7); ABSOLUTE MONOCYTES # (MANUAL) 0.6 10^3/uL (0.1-1.4); BAND NEUTROPHILS % (MANUAL) 3 % (3-5); BASOPHILS % (MANUAL) 0 % (0-2); EOSINOPHILS % (MANUAL) 0 % (0-6); LYMPHOCYTES % (MANUAL) 2 % (13-45); MONOCYTES % (MANUAL) 4 % (3-13); SEGMENTED NEUTROPHILS % (MAN) 91 % (42-78); TOTAL CELLS COUNTED 100
[2018-12-22 07:39] LABS: ANISOCYTOSIS SLIGHT; PLATELET COMMENT DECREASED
[2018-12-22] MEDS: INSULIN LISPRO 100 UNIT/ML 3 ML VIAL SUBCUT SCH ×4 (07:55→21:57)
[2018-12-22] MEDS: SERTRALINE HCL 50 MG TABLET PO SCH (09:19)
[2018-12-22] MEDS: DOCUSATE SODIUM 100 MG CAPSULE PO SCH ×2 (09:20→17:32)
--- NOTE | 2018-12-22 09:22 | PDOC PROGRESS REPORT ---
Subjective Progress Note for:: 12/22/18 Subjective:: FRANTZ WORTHINGTON is a 53 year old male past medical history of asthma on inhalers, never been intubated not on home O2, had recent cardiac work-up, with negative stress test and echo. Presented to ED complaining of shortness of breath, fever, chills nonproductive cough and back pain x1 day, denies any sick contacts or recent travel. In ED he was noted to be hypotensive, hypoxic, with elevated lactic acid. He was started on vancomycin, Zosyn, 3 L NS and hospitalist was consulted for admission. Lactic acid 3.1, 4.3, troponins negative. Lipid panel WNL. TSH WNL. proBNP 1320, WBC 17.1, Plt 155. pH 7.38, PCO2 33.8, PO2 63.3, PO2 89 on RA. RR 19-36, SBP 80s. CTA chest positive for little consolidation in the left lower lobe concerning for pneumonia. No pulmonary embolus. 12/21/2018. Significant improvement of his symptoms since yesterday. Patient is comfortably sitting in bed in no apparent distress, back pain has resolved, denies any fever, chills, nausea, vomiting, diarrhea, constipation or any urinary symptoms. SPO2 WNL on RA. SBP low normal asymptomatic. 12/22/2018. No acute events overnight. Patient comfortably sitting in the bed in no apparent distress, on room air, vitals WNL, complaining of mild cough, back pain has resolved, denies any fever, chills, nausea, vomiting, diarrhea, constipation or any urinary symptoms. CBC is 15.6, creatinine 1.41, blood cultures no growth so far. If leukocytosis improved and vitals within normal limits will DC home on p.o. antibiotics tomorrow. Reason For Visit: SEPSIS Physical Exam Vital Signs: Temp Pulse Resp BP Pulse Ox 98.7 F 81 18 108/61 97 12/22/18 03:22 12/22/18 07:56 12/22/18 07:56 12/22/18 03:22 12/22/18 07:56 Intake & Output 12/21/18 12/22/18 12/23/18 06:59 06:59 06:59 Intake Total 4382 4219 Balance 4382 4219 Weight 103.1 kg 105 kg General appearance: PRESENT: obese Head exam: PRESENT: atraumatic, normocephalic Respiratory exam: PRESENT: clear to auscultation antoine. ABSENT: rales, rhonchi, wheezes Cardiovascular exam: PRESENT: RRR. ABSENT: diastolic murmur, rubs, systolic murmur Pulses: PRESENT: normal dorsalis pedis pul Neurological exam: PRESENT: alert, awake, oriented to person, oriented to place, oriented to time, oriented to situation, CN II-XII grossly intact. ABSENT: willie r sensory deficit Results Laboratory Results: 12/22/18 04:15 12/22/18 04:15 12/21/18 12/21/18 12/21/18 08:19 12:10 21:45 WBC 15.7 H RBC 3.88 L Hgb 11.4 L D Hct 34.1 L MCV 88 MCH 29.4 MCHC 33.6 RDW 14.0 Plt Count 139 L Seg Neutrophils % Not Reportable Sodium Potassium Chloride Carbon Dioxide Anion Gap BUN Creatinine 1.44 H Est GFR ( Amer) > 60 Glucose Lactic Acid 3.2 H Calcium Total Bilirubin AST Alkaline Phosphatase Total Protein Albumin 12/22/18 12/22/18 12/22/18 04:15 04:15 04:15 WBC 15.6 H RBC 3.66 L Hgb 10.9 L Hct 32.1 L MCV 88 MCH 29.7 MCHC 33.8 RDW 14.0 Plt Count 142 L Seg Neutrophils % Not Reportable Sodium 138.0 Potassium 3.7 Chloride 110 H Carbon Dioxide 20 L Anion Gap 8 BUN 33 H Creatinine 1.41 H Est GFR ( Amer) > 60 Glucose 299 H Lactic Acid 1.7 Calcium 8.7 Total Bilirubin 0.5 AST 22 Alkaline Phosphatase 51 Total Protein 5.4 L Albumin 2.7 L 12/20/18 12/20/18 12/20/18 07:12 07:12 15:02 Creatine Kinase 276 H CK-MB (CK-2) 4.19 Troponin I < 0.012 < 0.012 NT-Pro-B Natriuret Pep 1320 H Impressions: Renal Ultrasound 12/20/18 00:00 IMPRESSION: NORMAL RENAL AND BLADDER ULTRASOUND. Chest X-Ray 12/20/18 09:04 IMPRESSION: Heterogeneous opacity of the left lung base, concerning for infection or aspiration. Possible small left pleural effusion. Cardiomegaly. Chest/Abdomen CTA 12/20/18 09:11 IMPRESSION: Alveolar consolidation in the left lower lobe concerning for pneumonia. No pulmonary embolus. Assessment and Plan - Diagnosis (1) Sepsis Is this a current diagnosis for this admission?: Yes Plan: Vitals WNL, WBC trending down, SPO2 WNL on RA. Lactic acid 1.5. Lactic acid 1.5, 3.1, 4.3, 3.4 Evidenced by WBC 17.1, Plt 155 pH 7.38, PCO2 33.8, PO2 63.3, PO2 89 on RA. RR 19-36, SBP 80s on admission. Due to underlying pneumonia. Day 3 IV antibiotics. Day 3 IV vancomycin renally dosed. Day 3 IV Zosyn. Cultures no growth so far. Continue telemetry, IV fluids, trend lactic acid, empiric IV antibiotics, sputum culture, blood culture If afebrile and vitals WNL we will switch to p.o. antibiotics and DC home tomorrow. (2) Acute and chronic respiratory failure with hypoxia Is this a current diagnosis for this admission?: Yes Plan: Significant improvement. SPO2 WNL on RA. Due to underlying pneumonia complicated by underlying asthma. Continue telemetry, supplemental oxygen, duo nebs, IV steroids, flutter valve, incentive spirometry, empiric IV antibiotics, LAMA, LABA, ICS. Day 3 IV steroids. (3) Pneumonia Qualifiers: Pneumonia type: due to unspecified organism Laterality: left Lung location: lower lobe of lung Qualified Code(s): J18.1 - Lobar pneumonia, unspecified organism Is this a current diagnosis for this admission?: Yes Plan: Likely community-acquired due to gram-positive such as strep pneumonia. Denies any history of sick contact, recent travel. Management as per #1. (4) Obesity Qualifiers: Body mass index: BMI 31.0-31.9 Is this a current diagnosis for this admission?: Yes Plan: TSH WNL. Diet and lifestyle modification recommended. (5) Acute kidney injury superimposed on CKD Is this a current diagnosis for this admission?: Yes Plan: Likely due to sepsis. Prerenal. Creatinine 1.3. Endorses history of CKD. This could be his baseline. No baseline available. Cautious volume resuscitation guided by volume status and electrodes. Avoid nephrotoxic meds. Outpatient PCP and nephrology follow-up. (6) Elevated brain natriuretic peptide (BNP) level Is this a current diagnosis for this admission?: Yes Plan: Denies any history of CAD. proBNP 1320 on admission. Troponins negative. EKG sinus rhythm. Patient sees Dr. Lora as outpatient. As per patient he had a negative echo and a stress test a month ago. Continue treating underlying sepsis and pneumonia. (7) Hyperglycemia Is this a current diagnosis for this admission?: Yes Plan: Hemoglobin A1c 5.1. Denies history of diabetes. This is most likely due to steroids receiving for underlying asthma exacerbation. We will start on Accu-Chek, hypoglycemia protocol, sliding scale insulin. Outpatient PCP follow-up.
[2018-12-22] MEDS: VANCOMYCIN HCL 1,250 MG in DEXTROSE 5%-WATER 250 ML IV SCH ×2 (10:49→22:04)
[2018-12-22] MEDS ORDERED: (PENDING PHARMACY ID) (Ergocalciferol (Vitamin D2) [Vitamin D2] 2,000 UNIT) PO SCH (14:30)
[2018-12-22] MEDS ORDERED: (PENDING PHARMACY ID) (Fluticasone Propionate [Flovent Hfa 220 Mcg Mdi] 1 PUFF) IH SCH (18:00)
[2018-12-22] MEDS: MONTELUKAST SODIUM 10 MG TABLET PO SCH (21:59)
[2018-12-23] MEDS: IPRATROPIUM/ALBUTEROL 0.5-2.5 MG/3 ML AMPUL NEB SCH ×2 (02:37→08:13)
[2018-12-23] MEDS: METHYLPREDNISOLONE INJ 40 MG/1 ML SDV IV SCH ×3 (05:20→22:31)
[2018-12-23] MEDS: PIPERACILLIN SODIUM/TAZOBACTAM 4.5 GM in NORMAL SALINE 100 ML IV SCH ×3 (05:20→17:07)
[2018-12-23] MEDS: PANTOPRAZOLE SODIUM 40 MG TABLET.DR PO SCH ×2 (05:20→17:07)
[2018-12-23] MEDS: NORMAL SALINE 1000 ML 1,000 ML IV PRN (05:22)
[2018-12-23] MEDS: DILTIAZEM HCL 60 MG TABLET ONE ×2 (06:39→06:44)
[2018-12-23] MEDS ORDERED: DILTIAZEM HCL 60 MG TABLET PO ONE (06:45)
--- NOTE | 2018-12-23 07:21 | EKG REPORT ---
SEVERITY:- ABNORMAL ECG - ATRIAL FIBRILLATION VENTRICULAR PREMATURE COMPLEX NONSPECIFIC ST-T CHANGES INFERIOR LEADS : Confirmed by: Ric Colbert MD 23-Dec-2018 07:20:24
[2018-12-23 07:37] LABS: HEMATOCRIT 33.6 % (37.9-51.0); HEMOGLOBIN 11.3 g/dL (13.5-17.0); MEAN CORPUSCULAR HEMOGLOBIN 29.6 pg (27.0-33.4); MEAN CORPUSCULAR HGB CONC 33.5 g/dL (32.0-36.0); MEAN CORPUSCULAR VOLUME 88 fl (80-97); PLATELET COUNT 167 10^3/uL (150-450); RED CELL DISTRIBUTION WIDTH 13.9 % (11.5-14.0)
[2018-12-23 07:58] LABS: ANION GAP 10 (5-19); BLOOD UREA NITROGEN 37 mg/dL (7-20); CALCIUM 8.7 mg/dL (8.4-10.2); CARBON DIOXIDE 20 mmol/L (22-30); CHLORIDE 111 mmol/L (98-107); GLUCOSE 295 mg/dL (75-110); POTASSIUM 3.6 mmol/L (3.6-5.0)
[2018-12-23 08:06] LABS: ABSOLUTE LYMPHOCYTES# (MANUAL) 0.5 10^3/uL (0.5-4.7); ABSOLUTE MONOCYTES # (MANUAL) 0.8 10^3/uL (0.1-1.4); BAND NEUTROPHILS % (MANUAL) 4 % (3-5); BASOPHILS % (MANUAL) 1 % (0-2); EOSINOPHILS % (MANUAL) 0 % (0-6); LYMPHOCYTES % (MANUAL) 3 % (13-45); MONOCYTES % (MANUAL) 5 % (3-13); PLATELET COMMENT ADEQUATE; RBC MORPHOLOGY COMMENT NORMO-CYTIC/CHROMIC; SEGMENTED NEUTROPHILS % (MAN) 87 % (42-78); TOTAL CELLS COUNTED 100
[2018-12-23] MEDS ORDERED: DILTIAZEM HCL INJ 25 MG/5 ML VIAL IV ONE (08:45)
[2018-12-23] MEDS: INSULIN LISPRO 100 UNIT/ML 3 ML VIAL SUBCUT SCH ×4 (09:03→22:30)
[2018-12-23] MEDS: DOCUSATE SODIUM 100 MG CAPSULE PO SCH ×2 (09:03→17:00)
[2018-12-23] MEDS: VANCOMYCIN HCL 1,250 MG in DEXTROSE 5%-WATER 250 ML IV SCH ×2 (09:04→22:31)
[2018-12-23] MEDS: SERTRALINE HCL 50 MG TABLET PO SCH (09:04)
[2018-12-23] MEDS ORDERED: FLUTICASONE/VILANTEROL 200-25 MCG/DOSE IH SCH (10:00)
[2018-12-23] MEDS ORDERED: LEVALBUTEROL HCL NEB 1.25 MG/3 ML AMPUL NEB PRN (10:09)
[2018-12-23] MEDS: CHOLECALCIFEROL (D3) 1,000 UNIT (25 MCG) TABLET PO SCH (12:32)
[2018-12-23] MEDS: DILTIAZEM HCL 60 MG TABLET PO SCH ×3 (12:32→23:00)
--- NOTE | 2018-12-23 12:55 | EKG REPORT ---
SEVERITY:- ABNORMAL ECG - ATRIAL FIBRILLATION, V-RATE 71-100 NEW SINCE 12/20/18 EKG. PROBABLE INFERIOR INFARCT, EVOLUTIONARY CHANGES, RECENT SINCE 12/20/18 EKG. LATERAL LEADS ARE ALSO INVOLVED : Confirmed by: Ric Colbert MD 23-Dec-2018 12:54:39
--- NOTE | 2018-12-23 13:33 | PDOC PROGRESS REPORT ---
Subjective Progress Note for:: 12/23/18 Subjective:: FRANTZ WORTHINGTON is a 53 year old male past medical history of asthma on inhalers, never been intubated not on home O2, had recent cardiac work-up, with negative stress test and echo. Presented to ED complaining of shortness of breath, fever, chills nonproductive cough and back pain x1 day, denies any sick contacts or recent travel. In ED he was noted to be hypotensive, hypoxic, with elevated lactic acid. He was started on vancomycin, Zosyn, 3 L NS and hospitalist was consulted for admission. Lactic acid 3.1, 4.3, troponins negative. Lipid panel WNL. TSH WNL. proBNP 1320, WBC 17.1, Plt 155. pH 7.38, PCO2 33.8, PO2 63.3, PO2 89 on RA. RR 19-36, SBP 80s. CTA chest positive for little consolidation in the left lower lobe concerning for pneumonia. No pulmonary embolus. 12/21/2018. Significant improvement of his symptoms since yesterday. Patient is comfortably sitting in bed in no apparent distress, back pain has resolved, denies any fever, chills, nausea, vomiting, diarrhea, constipation or any urinary symptoms. SPO2 WNL on RA. SBP low normal asymptomatic. 12/22/2018. No acute events overnight. Patient comfortably sitting in the bed in no apparent distress, on room air, vitals WNL, complaining of mild cough, back pain has resolved, denies any fever, chills, nausea, vomiting, diarrhea, constipation or any urinary symptoms. CBC is 15.6, creatinine 1.41, blood cultures no growth so far. If leukocytosis improved and vitals within normal limits will DC home on p.o. antibiotics tomorrow. 12/23/2018. Overnight patient was found to be on A. fib RVR and was started on Cardizem, otherwise patient is feeling much better, shortness of breath has improved, and SPO2 WNL on room air. Patient is stating that for the last 2 years he has been on and off palpitations however never been diagnosed with A. fib before. Denies any fever, chills, nausea, vomiting, diarrhea, constipation or any urinary symptoms. Reason For Visit: SEPSIS Physical Exam Vital Signs: Temp Pulse Resp BP Pulse Ox 98.8 F 107 H 17 138/77 H 94 09/16/19 03:18 12/23/18 08:13 12/23/18 08:13 12/23/18 06:05 12/23/18 08:13 Intake & Output 12/22/18 12/23/18 12/24/18 06:59 06:59 06:59 Intake Total 4219 2900 1250 Balance 4219 2900 1250 Weight 105 kg 107.3 kg Results Laboratory Results: 12/23/18 06:26 12/23/18 06:26 12/23/18 12/23/18 06:26 06:26 WBC 16.0 H RBC 3.80 L Hgb 11.3 L Hct 33.6 L MCV 88 MCH 29.6 MCHC 33.5 RDW 13.9 Plt Count 167 Seg Neutrophils % Not Reportable Sodium 141.0 Potassium 3.6 Chloride 111 H Carbon Dioxide 20 L Anion Gap 10 BUN 37 H Creatinine 1.40 H Est GFR ( Amer) > 60 Glucose 295 H Calcium 8.7 12/20/18 15:40 Clean Catch Midstream Urine Culture - Final NO GROWTH 2 DAYS 12/20/18 12/20/18 12/20/18 07:12 07:12 15:02 Creatine Kinase 276 H CK-MB (CK-2) 4.19 Troponin I < 0.012 < 0.012 NT-Pro-B Natriuret Pep 1320 H Impressions: Renal Ultrasound 12/20/18 00:00 IMPRESSION: NORMAL RENAL AND BLADDER ULTRASOUND. Chest X-Ray 12/20/18 09:04 IMPRESSION: Heterogeneous opacity of the left lung base, concerning for infection or aspiration. Possible small left pleural effusion. Cardiomegaly. Chest/Abdomen CTA 12/20/18 09:11 IMPRESSION: Alveolar consolidation in the left lower lobe concerning for pne umonia. No pulmonary embolus. Assessment and Plan - Diagnosis (1) A-fib Qualifiers: Atrial fibrillation type: paroxysmal Qualified Code(s): I48.0 - Paroxysmal atrial fibrillation Is this a current diagnosis for this admission?: Yes Plan: [id number] score of 2-3 Likely paroxysmal as patient is reporting intermittent palpitation for the last 2 years and elevated proBNP on admission. proBNP 1320 on admission could be due to either CHF due to chronic paroxysmal undiagnosed A. fib VS CKD. TSH and lipid panel WNL. Negative outpatient echo and a stress test reported by the patient. Sees Dr. Lora as outpatient. Currently rate controlled on Cardizem 60 mg p.o. every 6 hours. Continue Cardizem, with [id number] score of 2-3 no need chronic anticoagulation. Will defer decision to slasher runner. Cardiology consulted. Follow-up recommendation. (2) Sepsis Is this a current diagnosis for this admission?: Yes Plan: Vitals WNL, WBC trending down, SPO2 WNL on RA. Lactic acid 1.5. Lactic acid 1.5, 3.1, 4.3, 3.4 Evidenced by WBC 17.1, Plt 155 pH 7.38, PCO2 33.8, PO2 63.3, PO2 89 on RA. RR 19-36, SBP 80s on admission. Due to underlying pneumonia. Day 4 IV antibiotics. Day 4 IV vancomycin renally dosed. Day 4 IV Zosyn. Cultures no growth so far. Continue telemetry, IV fluids, trend lactic acid, empiric IV antibiotics, sputum culture, blood culture If afebrile and vitals WNL we will switch to p.o. antibiotics and DC home to [facility]. (3) Acute and chronic respiratory failure with hypoxia Is this a current diagnosis for this admission?: Yes Plan: Significant improvement. SPO2 WNL on RA. Due to underlying pneumonia complicated by underlying asthma. Continue telemetry, supplemental oxygen, duo nebs, IV steroids, flutter valve, incentive spirometry, empiric IV antibiotics, LAMA, LABA, ICS. Day 4 IV steroids. (4) Pneumonia Qualifiers: Pneumonia type: due to unspecified organism Laterality: left Lung location: lower lobe of lung Qualified Code(s): J18.1 - Lobar pneumonia, unspecified organism Is this a current diagnosis for this admission?: Yes Plan: Likely community-acquired due to gram-positive such as strep pneumonia. Denies any history of sick contact, recent travel. Management as per #1. (5) Obesity Qualifiers: Body mass index: BMI 31.0-31.9 Is this a current diagnosis for this admission?: Yes Plan: TSH WNL. Diet and lifestyle modification recommended. (6) Acute kidney injury superimposed on CKD Is this a current diagnosis for this admission?: Yes Plan: Likely due to sepsis. Prerenal. Creatinine 1.3. Endorses history of CKD. This could be his baseline. No baseline available. Cautious volume resuscitation guided by volume status and electrodes. Avoid nephrotoxic meds. Outpatient PCP and nephrology follow-up. (7) Elevated brain natriuretic peptide (BNP) level Is this a current diagnosis for this admission?: Yes Plan: Denies any history of CAD. proBNP 1320 on admission. CHF due to chronic uncontrolled paroxysmal A. fib VS CKD. Troponins negative. EKG sinus rhythm. Patient sees Dr. Lora as outpatient. As per patient he had a negative echo and a stress test a month ago. Continue treating underlying sepsis and pneumonia. (8) Hyperglycemia Is this a current diagnosis for this admission?: Yes Plan: Hemoglobin A1c 5.1. Denies history of diabetes. This is most likely due to steroids receiving for underlying asthma exacerbation. We will start on Accu-Chek, hypoglycemia protocol, sliding scale insulin. Outpatient PCP follow-up.
--- NOTE | 2018-12-23 21:43 | PDOC CONSULTATION ---
Consultation-Blank Consultation: CARDIOLOGY CONSULTATION by Dr. Chelita Lora on 12/23/2018. Patient seen at 8 AM. 60 minutes spent on this patient more than 50% of time spent in direct patient care. REASON FOR CONSULTATION: Atrial fibrillation new onset of today. CONSULT REQUESTING PHYSICIAN: [facility] HISTORY PRESENT ILLNESS: Patient is a 53-year-old male with known history of hypertension and history of asthma admitted with symptoms of shortness of breath and nonproductive cough and wheezing. The patient was hypotensive on admission and also hypoxemic. Since subsequently the patient was treated with antibiotics, anti-COPD medications, bronchodilators, and steroids with improvement. This morning the patient went into atrial fibrillation with ventricular response around 110 bpm. The patient has a history of palpitations since a few months. His work-up in the office was negative. See below. He also has been having chest pressure which is atypical.. He has a history of hypertension which is well controlled. There is no history of diabetes mellitus. There is no prior history of myocardial infarction. Although the patient states in 2 or 3 occasions he has had chest pain which is been of prolonged duration. There is no history of thyroid disease. There is no h istory of TIA CVA. Past Medical History Pulmonary Medical History: Reports: Asthma, and hypertension. Social History Smoking Status: Never Smoker Frequency of Alcohol Use: None Hx Recreational Drug Use: No Drugs: None Hx Prescription Drug Abuse: No Family History Family History: Positive for hypertension. Negative for coronary artery disease. Medication/Allergy Home Medications: Albuterol Sulfate [Proair Hfa Inhalation Aerosol 8.5 gm Mdi] 1 puff IH Q4 PRN 12/20/18 Budesonide/Formoterol Fumarate [Symbicort Hfa 160-4.5 Mcg Inhaler 6 gm] 2 puff IH Q12 12/20/18 Ergocalciferol (Vitamin D2) [Vitamin D2] 2,000 unit PO DAILY 12/20/18 Fluticasone Propionate [Flovent HFA 220 mcg MDI] 1 puff IH BID 12/20/18 Lisinopril/Hydrochlorothiazide [Lisinopril-Hctz 20-12.5 mg Tab] 1 each PO DAILY 12/20/18 Montelukast Sodium [Singulair 10 mg Tablet] 10 mg PO QHS 12/20/18 Naproxen Sodium [Aleve] 220 mg PO DAILYP PRN 12/20/18 Sertraline HCl [Zoloft] 100 mg PO DAILY 12/20/18 Allergies/Adverse Reactions: codeine Allergy (Verified 12/20/18 08:42) nut - unspecified Allergy (Verified 12/20/18 17:40) tomatoes Allergy (Uncoded 12/20/18 17:40). RESUSCITATION STATUS: The patient is a full code. His is his surrogate healthcare decision maker. Review of Systems CONSTITUTIONAL: Patient admitted with fever chills or Reiger's. The patient also complains of fatigue and generalized weakness. HEAD:. No history of headaches or head injury. EYES: No history of amblyopia diplopia. No history of amaurosis fugax. EARS: No history of tinnitus. No history of hearing loss. No vertigo. NOSE: No history of hayfever. No history of nosebleeds. MOUTH: No history of altered taste sensation. No ulcers in the mouth. THROAT: No history of ulcers in the throat. No history of odynophagia or dysphagia. No recurrent sore throats. SKIN: No skin skin rashes, or skin lesions. No history of pruritus. No history of yellowish discoloration of the skin. NECK: No history of neck pain. No history of swelling in the neck. LUNGS: History of asthma present. Recent acute exacerbation of asthma. Also patient admitted with pneumonia. No prior history of intubation. The patient is cough which is nonproductive. No pleuritic chest pain. No hemoptysis. HEART: History of noncardiac chest pains in the past. History of low level negative exercise treadmill stress test in the office in October. No history of congestive heart failure. History of palpitations off and on. Patient today has new onset atrial fibrillation. No history of leg swelling. No history of PND or orthopnea. He states he has a history of leg edema leg edema, which is controlled with lisinopril with hydrochlorothiazide in it. ENDOCRINE: No history of diabetes mellitus. No history of thyroid disease. No polydipsia polyuria. No history of heat or cold intolerance. No history of syncope. GI: No history of GI bleed. Noticed peptic ulcer disease. No history of cirrhosis. No history of jaundice. No history of fatty food intolerance. RENAL: No history of chronic kidney disease. No symptoms of UTI. No symptoms of enlarged prostate. MUSCULOSKELETAL: No history of arthritis or collagen vascular disease. METABOLIC: No history of obesity. No history of hyperlipidemia. No history of gout. LOOM FIXER: No history of TIA or CVA. No history of headaches migraines or seizures. PSYCHIATRIC: History of depression well-controlled with medication. No history of anxiety. No suicidal ideation. No homicidal ideation. VASCULAR: No history of calf or buttock claudication. No history of DVT. HEMATOLOGICAL: No history of anemia or bleeding diathesis or clotting disorders. THE patient's corrected Zenon VASC 2 score is 1. Discussed the option of full dose aspirin versus anticoagulation. Patient will decide PHYSICAL EXAMINATION: The patient is well-built and well-nourished. In no acute distress. Selected Entries 12/23/18 12/23/18 07:28 08:13 Temperature 98.3 F Temperature Oral Source Pulse Rate 107 H Respiratory 17 Rate Blood Pressure 135/82 H Blood Pressure 99 Mean BP Location Left Arm BP Position Supine O2 Sat by Pulse 94 Oximetry Fraction of 21 Inspired Oxygen (FIO2) Oxygen Delivery Room Air Method HEAD: Atraumatic, normocephalic. EYES: Pupils equal round and reactive to light, extraocular movements intact, sclera anicteric, conjunctiva are normal. ENT: TMs normal, nares patent, oropharynx clear without exudates. Moist mucous membranes. NECK: Normal range of motion, supple without lymphadenopathy or JVD. LUNGS: Breath sounds clear to auscultation bilaterally and equal. No wheezes rales or rhonchi. There is no chest wall tenderness HEART: S1-S2 is heard. S1 is of variable intensity. There is no S3 gallop. There is no S4 gallop. There is systolic murmur left sternal border and the apex, there is no rub ABDOMEN: Soft, nontender, normoactive bowel sounds. No guarding, no rebound. No masses appreciated. EXTREMITIES: Normal range of motion, no pitting or edema. No clubbing or cyanosis. NEUROLOGICAL: Cranial nerves II through XII grossly intact. Normal speech, normal gait. There is no focal deficits. Sensations are normal bilaterally. PSYCH: Normal mood, normal affect. His judgment and insight are intact SKIN: Warm, Dry, normal turgor, no rashes or lesions noted. EKG: Initial EKG shows normal sinus rhythm. Subsequent EKG shows atrial fibrillation with fast ventricular response. Incomplete right bundle branch block pattern. Current Medications Acetaminophen (Tylenol 325 Mg Supp) 325 mg [place] Q4HP PRN PRN Reason: temperture or pain Stop: 01/19/19 13:05 Acetaminophen (Tylenol 325 Mg Tablet) 650 mg PO Q4HP PRN PRN Reason: temperture or pain Stop: 01/19/19 13:05 Last Admin: 12/20/18 22:06 Dose: 650 mg Documented by: Cholecalciferol (Vitamin D3 1000 Unit Tablet) 2,000 unit PO DAILY [facility] Stop: 01/22/19 09:59 Last Admin: 12/23/18 12:32 Dose: 2,000 unit Documented by: Dextrose (Dextrose Inj 50% Syringe (25 Gm/50 Ml)) 12.5 gm IV PRN PRN; Protocol PRN Reason: FOR BG 50-69 IN ALERT PATIENT Stop: 01/20/19 10:26 Dextrose (Dextrose Inj 50% Syringe (25 Gm/50 Ml)) 25 gm IV PRN PRN; Protocol PRN Reason: PER PROTOCOL Stop: 01/20/19 10:26 Diltiazem HCl (Cardizem 60 Mg Tablet) 60 mg PO Q6 [facility] Stop: 01/22/19 11:59 Last Admin: 12/23/18 17:07 Dose: 60 mg Documented by: Docusate Sodium (Colace 100 Mg Capsule) 200 mg PO BID [facility] Stop: 01/19/19 17:59 Last Admin: 12/23/18 17:00 Dose: Not Given Documented by: Glucagon (Glucagen Inj 1 Mg Vial) 1 mg IM PRN PRN; Protocol PRN Reason: Evaluate for BG < 70 Stop: 01/20/19 10:26 Glucose (Glutose 40% Gel 15 Gm Tube) 15 gm PO PRN PRN; Protocol PRN Reason: FOR BG 50-69 IN ALERT PATIENT Stop: 01/20/19 10:26 Glucose (Glutose 40% Gel 15 Gm Tube) 30 gm PO PRN PRN; Protocol PRN Reason: FOR BG < 50 IN ALERT PATIENT Stop: 01/20/19 10:26 Piperacillin Sod/Tazobactam (Sod 4.5 gm/ Sodium Chloride) 100 mls @ 200 mls/hr IV Q6 [facility] Stop: 12/27/18 17:59 Last Infusion: 12/23/18 18:25 Dose: Infused Documented by: Vancomycin HCl 1,250 mg/ (Dextrose) 250 mls @ 166.667 mls/hr IV Q12 [facility] Stop: 12/29/18 09:59 Last Infusion: 12/23/18 10:41 Dose: Infused Documented by: Insulin Human Lispro (Humalog Insulin 100 Unit/1 Ml 3 Ml Vial) 0 - 12 unit SUBCUT ACHS [facility]; Protocol Stop: 01/20/19 10:59 Last Admin: 12/23/18 17:06 Dose: 6 unit Documented by: Levalbuterol HCl (Xopenex Neb 1.25 Mg/3 Ml Ampul) 1.25 mg NEB RTQ6HP PRN PRN Reason: SHORTNESS OF BREATH Stop: 01/22/19 10:08 Methylprednisolone Sodium Succinate (Solu-Medrol Inj/Pf 40 Mg/1 Ml Sdv) 40 mg IV Q8 [facility] Stop: 01/21/19 21:59 Last Admin: 12/23/18 15:30 Dose: 40 mg Documented by: Montelukast Sodium (Singulair 10 Mg Tablet) 10 mg PO QHS [facility] Stop: 01/20/19 21:59 Last Admin: 12/22/18 21:59 Dose: 10 mg Documented by: Pantoprazole Sodium (Protonix [address] Tablet) 40 mg PO BID@0600,1700 [facility] Stop: 01/19/19 16:59 Last Admin: 12/23/18 17:07 Dose: 40 mg Documented by: Patient Own Medication (Fluticasone Propionate [Flovent Hfa 220 Mcg Mdi]) 1 puff IH BID [facility] Stop: 01/21/19 17:59 Sertraline HCl (Zoloft 50 Mg Tablet) 100 mg PO DAILY [facility] Stop: 01/20/19 12:59 Last Admin: 12/23/18 09:04 Dose: 100 mg Documented by: Sodium Chloride (Saline Flush 2.5 Ml Monoject Prefil Syrin) 2.5 ml IV Q8 [facility] Stop: 01/19/19 13:59 Last Admin: 12/23/18 21:20 Dose: Not Given Documented by: Discontinued Medications Albuterol/Ipratropium (Duoneb 3 Ml Ampul) 3 ml NEB NOW ONE Stop: 12/20/18 09:15 Last Admin: 12/20/18 09:35 Dose: 3 ml Documented by: Albuterol/Ipratropium (Duoneb 3 Ml Ampul) 3 ml NEB NOW ONE Stop: 12/20/18 12:43 Last Admin: 12/20/18 12:45 Dose: 3 ml Documented by: Albuterol/Ipratropium (Duoneb 3 Ml Ampul) Confirm Administered Dose 3 ml NEB .STK-MED ONE Stop: 12/20/18 12:42 Last Admin: 12/20/18 12:47 Dose: Not Given Documented by: Albuterol/Ipratropium (Duoneb 3 Ml Ampul) 3 ml NEB RTQ6 [facility] Stop: 01/19/19 13:59 Last Admin: 12/23/18 08:13 Dose: 3 ml Documented by: Diltiazem HCl (Cardizem 60 Mg Tablet) Confirm Administered Dose 60 mg .ROUTE .STK-MED ONE Stop: 12/23/18 06:35 Last Admin: 12/23/18 06:44 Dose: Not Given Documented by: Diltiazem HCl (Cardizem 60 Mg Tablet) 60 mg PO NOW ONE Stop: 12/23/18 06:46 Last Admin: 12/23/18 06:43 Dose: 60 mg Documented by: Diltiazem HCl (Cardizem Inj 25 Mg/5 Ml Vial) 5 mg IV NOW ONE Stop: 12/23/18 08:46 Last Admin: 12/23/18 09:03 Dose: 5 mg Documented by: Fentanyl Citrate (Sublimaze Inj/Pf 100 Mcg/2 Ml Ampule) 50 mcg IV NOW ONE Stop: 12/20/18 10:15 Last Admin: 12/20/18 10:26 Dose: 50 mcg Documented by: Fluticasone/Vilanterol (Breo 200-25 Mcg Ellipta 14 Dose/Dpi) 1 inh IH DAILY [facility] Stop: 01/22/19 09:59 Last Admin: 12/23/18 09:04 Dose: Not Given Documented by: Sodium Chloride (Nacl 0.9% 1000 Ml Iv Soln) 1,000 mls @ 0 mls/hr IV BOLUS ONE Stop: 12/20/18 09:11 Last Infusion: 12/20/18 10:50 Dose: Infused Documented by: Sodium Chloride (Nacl 0.9% 1000 Ml Iv Soln) 1,000 mls @ 0 mls/hr IV BOLUS ONE Stop: 12/20/18 10:13 Last Infusion: 12/20/18 11:20 Dose: Infused Documented by: Sodium Chloride (Nacl 0.9% 1000 Ml Iv Soln) 1,000 mls @ 0 mls/hr IV BOLUS ONE Stop: 12/20/18 11:14 Last Infusion: 12/20/18 12:30 Dose: Infused Documented by: Sodium Chloride (Nacl 0.9% 1000 Ml Iv Soln) 1,000 mls @ 80 mls/hr IV CONTINUOUS PRN PRN Reason: THIS MED IS NOT "PRN" Stop: 01/19/19 13:05 Last Infusion: 12/21/18 00:56 Dose: Infused Documented by: Vancomycin HCl 1,000 mg/ (Dextrose) 250 mls @ 166.667 mls/hr IV Q12 [facility] Stop: 12/27/18 21:59 Last Infusion: 12/22/18 00:43 Dose: Infused Documented by: Sodium Chloride (Nacl 0.9% 1000 Ml Iv Soln) 1,000 mls @ 100 mls/hr IV CONTINUOUS PRN PRN Reason: THIS MED IS NOT "PRN" Stop: 01/19/19 13:05 Last Infusion: 12/23/18 10:17 Dose: Infused Documented by: Methylprednisolone Sodium Succinate (Solu-Medrol Inj/Pf 125 Mg/2 Ml Sdv) 125 mg IV NOW ONE Stop: 12/20/18 09:14 Last Admin: 12/20/18 09:35 Dose: 125 mg Documented by: Methylprednisolone Sodium Succinate (Solu-Medrol Inj/Pf 40 Mg/1 Ml Sdv) 60 mg IV Q8 [facility] Stop: 01/19/19 21:59 Last Admin: 12/22/18 14:57 Dose: 60 mg Documented by: Piperacillin Sod/Tazobactam Sod (Zosyn Inj 4.5 Gm Vial) 4.5 gm IV IVBAG (ED) ONE Stop: 12/20/18 10:12 Last Admin: 12/20/18 10:25 Dose: 4.5 gm Documented by: Vancomycin HCl (Vancocin Inj 1000 Mg Vial) 1,500 mg IV IVBAG (ED) ONE Stop: 12/20/18 10:12 Last Admin: 12/20/18 10:25 Dose: 1,500 mg Documented by: Labs- Entire Visit 12/20/18 12/20/18 12/20/18 07:12 07:12 07:12 WBC 17.1 H RBC 4.57 Hgb 13.6 Hct 40.5 MCV 89 MCH 29.8 MCHC 33.5 RDW 13.8 Plt Count 155 Lymph % (Auto) Not Reportable Garvin % (Auto) Not Reportable Eos % (Auto) Not Reportable Baso % (Auto) Not Reportable Absolute Neuts (auto) Not Reportable Absolute Lymphs (auto) Not Reportable Absolute Monos (auto) Not Reportable Absolute Eos (auto) Not Reportable Absolute Basos (auto) Not Reportable Total Counted 100 Seg Neutrophils % Not Reportable Seg Neuts % (Manual) 75 Band Neutrophils % 10 H Lymphocytes % (Manual) 8 L Atypical Lymphs % 1 Monocytes % (Manual) 6 Eosinophils % (Manual) 0 Basophils % (Manual) 0 Abs Neuts (Manual) 14.5 H Abs Lymphs (Manual) 1.5 Abs Monocytes (Manual) 1.0 Absolute Eos (Manual) 0.0 Abs Basophils (Manual) 0.0 Platelet Comment ADEQUATE Poikilocytosis 1+ Anisocytosis Ovalocytes 1+ RBC Morph Comment Carbonic Acid HCO3/H2CO3 Ratio ABG pH ABG pCO2 ABG pO2 ABG HCO3 ABG Total CO2 ABG O2 Saturation ABG Base Excess FiO2 Sodium 139.5 Potassium 3.5 L Chloride 101 Carbon Dioxide 26 Anion Gap 13 BUN 33 H Creatinine 1.81 H Est GFR ( Amer) 48 L Est GFR (MDRD) Non-Af 39 L Glucose 147 H POC Glucose Hemoglobin A1c % Lactic Acid Calcium 9.7 Total Bilirubin 2.1 H Direct Bilirubin 0.4 Neonat Total Bilirubin Not Reportable Neonat Direct Bilirubin Not Reportable Neonat Indirect Bili Not Reportable AST 39 ALT 33 Alkaline Phosphatase 76 Creatine Kinase 276 H CK-MB (CK-2) 4.19 Troponin I < 0.012 NT-Pro-B Natriuret Pep 1320 H Total Protein 6.4 Albumin 3.8 Triglycerides Cholesterol LDL Cholesterol Direct VLDL Cholesterol HDL Cholesterol TSH Urine Color Urine Appearance Urine pH Ur Specific [place] Urine Protein Urine Glucose (UA) Urine Ketones Urine Blood Urine Nitrite Urine Bilirubin Urine Urobilinogen Ur Leukocyte Esterase Urine WBC (Auto) Urine RBC (Auto) Urine Mucus (Auto) Urine Ascorbic Acid Time Trough Drawn Vancomycin Trough Influenza A (Rapid) Influenza B (Rapid) 12/20/18 12/20/18 12/20/18 07:12 07:12 07:12 WBC RBC Hgb Hct MCV MCH MCHC RDW Plt Count Lymph % (Auto) Garvin % (Auto) Eos % (Auto) Baso % (Auto) Absolute Neuts (auto) Absolute Lymphs (auto) Absolute Monos (auto) Absolute Eos (auto) Absolute Basos (auto) Total Counted Seg Neutrophils % Seg Neuts % (Manual) Band Neutrophils % Lymphocytes % (Manual) Atypical Lymphs % Monocytes % (Manual) Eosinophils % (Manual) Basophils % (Manual) Abs Neuts (Manual) Abs Lymphs (Manual) Abs Monocytes (Manual) Absolute Eos (Manual) Abs Basophils (Manual) Platelet Comment Poikilocytosis Anisocytosis Ovalocytes RBC Morph Comment Carbonic Acid HCO3/H2CO3 Ratio ABG pH ABG pCO2 ABG pO2 ABG HCO3 ABG Total CO2 ABG O2 Saturation ABG Base Excess FiO2 Sodium Potassium Chloride Carbon Dioxide Anion Gap BUN Creatinine Est GFR ( Amer) Est GFR (MDRD) Non-Af Glucose POC Glucose Hemoglobin A1c % 5.9 Lactic Acid Calcium Total Bilirubin Direct Bilirubin Neonat Total Bilirubin Neonat Direct Bilirubin Neonat Indirect Bili AST ALT Alkaline Phosphatase Creatine Kinase CK-MB (CK-2) Troponin I NT-Pro-B Natriuret Pep Total Protein Albumin Triglycerides 77 Cholesterol 115.55 LDL Cholesterol Direct 65 VLDL Cholesterol 15.0 HDL Cholesterol 46 TSH 1.28 Urine Color Urine Appearance Urine pH Ur Specific [place] Urine Protein Urine Glucose (UA) Urine Ketones Urine Blood Urine Nitrite Urine Bilirubin Urine Urobilinogen Ur Leukocyte Esterase Urine WBC (Auto) Urine RBC (Auto) Urine Mucus (Auto) Urine Ascorbic Acid Time Trough Drawn Vancomycin Trough Influenza A (Rapid) Influenza B (Rapid) 12/20/18 12/20/18 12/20/18 09:33 13:06 13:58 WBC RBC Hgb Hct MCV MCH MCHC RDW Plt Count Lymph % (Auto) Garvin % (Auto) Eos % (Auto) Baso % (Auto) Absolute Neuts (auto) Absolute Lymphs (auto) Absolute Monos (auto) Absolute Eos (auto) Absolute Basos (auto) Total Counted Seg Neutrophils % Seg Neuts % (Manual) Band Neutrophils % Lymphocytes % (Manual) Atypical Lymphs % Monocytes % (Manual) Eosinophils % (Manual) Basophils % (Manual) Abs Neuts (Manual) Abs Lymphs (Manual) Abs Monocytes (Manual) Absolute Eos (Manual) Abs Basophils (Manual) Platelet Comment Poikilocytosis Anisocytosis Ovalocytes RBC Morph Comment Carbonic Acid 1.02 L HCO3/H2CO3 Ratio 19:1 ABG pH 7.38 ABG pCO2 33.8 L ABG pO2 63.3 L ABG HCO3 19.6 L ABG Total CO2 20.7 L ABG O2 Saturation 92.1 L ABG Base Excess -4.6 FiO2 4L Sodium Potassium Chloride Carbon Dioxide Anion Gap BUN Creatinine Est GFR ( Amer) Est GFR (MDRD) Non-Af Glucose POC Glucose Hemoglobin A1c % Lactic Acid 3.1 H 3.1 H Calcium Total Bilirubin Direct Bilirubin Neonat Total Bilirubin Neonat Direct Bilirubin Neonat Indirect Bili AST ALT Alkaline Phosphatase Creatine Kinase CK-MB (CK-2) Troponin I NT-Pro-B Natriuret Pep Total Protein Albumin Triglycerides Cholesterol LDL Cholesterol Direct VLDL Cholesterol HDL Cholesterol TSH Urine Color Urine Appearance Urine pH Ur Specific [place] Urine Protein Urine Glucose (UA) Urine Ketones Urine Blood Urine Nitrite Urine Bilirubin Urine Urobilinogen Ur Leukocyte Esterase Urine WBC (Auto) Urine RBC (Auto) Urine Mucus (Auto) Urine Ascorbic Acid Time Trough Drawn Vancomycin Trough Influenza A (Rapid) Influenza B (Rapid) 12/20/18 12/20/18 12/20/18 15:02 15:02 15:40 WBC RBC Hgb Hct MCV MCH MCHC RDW Plt Count Lymph % (Auto) Garvin % (Auto) Eos % (Auto) Baso % (Auto) Absolute Neuts (auto) Absolute Lymphs (auto) Absolute Monos (auto) Absolute Eos (auto) Absolute Basos (auto) Total Counted Seg Neutrophils % Seg Neuts % (Manual) Band Neutrophils % Lymphocytes % (Manual) Atypical Lymphs % Monocytes % (Manual) Eosinophils % (Manual) Basophils % (Manual) Abs Neuts (Manual) Abs Lymphs (Manual) Abs Monocytes (Manual) Absolute Eos (Manual) Abs Basophils (Manual) Platelet Comment Poikilocytosis Anisocytosis Ovalocytes RBC Morph Comment Carbonic Acid HCO3/H2CO3 Ratio ABG pH ABG pCO2 ABG pO2 ABG HCO3 ABG Total CO2 ABG O2 Saturation ABG Base Excess FiO2 Sodium Potassium Chloride Carbon Dioxide Anion Gap BUN Creatinine Est GFR ( Amer) Est GFR (MDRD) Non-Af Glucose POC Glucose Hemoglobin A1c % Lactic Acid 4.3 H Calcium Total Bilirubin Direct Bilirubin Neonat Total Bilirubin Neonat Direct Bilirubin Neonat Indirect Bili AST ALT Alkaline Phosphatase Creatine Kinase CK-MB (CK-2) Troponin I < 0.012 NT-Pro-B Natriuret Pep Total Protein Albumin Triglycerides Cholesterol LDL Cholesterol Direct VLDL Cholesterol HDL Cholesterol TSH Urine Color YELLOW Urine Appearance SLIGHTLY-CLOUDY Urine pH 5.0 Ur Specific [place] 1.042 Urine Protein NEGATIVE Urine Glucose (UA) NEGATIVE Urine Ketones NEGATIVE Urine Blood NEGATIVE Urine Nitrite NEGATIVE Urine Bilirubin NEGATIVE Urine Urobilinogen NEGATIVE Ur Leukocyte Esterase NEGATIVE Urine WBC (Auto) 4 Urine RBC (Auto) 2 Urine Mucus (Auto) RARE Urine Ascorbic Acid NEGATIVE Time Trough Drawn Vancomycin Trough Influenza A (Rapid) Influenza B (Rapid) 12/20/18 12/21/18 12/21/18 15:40 00:38 08:19 WBC 15.7 H RBC 3.88 L Hgb 11.4 L D Hct 34.1 L MCV 88 MCH 29.4 MCHC 33.6 RDW 14.0 Plt Count 139 L Lymph % (Auto) Not Reportable [place]vin % (Auto) Not Reportable Eos % (Auto) Not Reportable Baso % (Auto) Not Reportable Absolute Neuts (auto) Not Reportable Absolute Lymphs (auto) Not Reportable Absolute Monos (auto) Not Reportable Absolute Eos (auto) Not Reportable Absolute Basos (auto) Not Reportable Total Counted 100 Seg Neutrophils % Not Reportable Seg Neuts % (Manual) 79 H Band Neutrophils % 7 H Lymphocytes % (Manual) 7 L Atypical Lymphs % Monocytes % (Manual) 7 Eosinophils % (Manual) 0 Basophils % (Manual) 0 Abs Neuts (Manual) 13.5 H Abs Lymphs (Manual) 1.1 Abs Monocytes (Manual) 1.1 Absolute Eos (Manual) 0.0 Abs Basophils (Manual) 0.0 Platelet Comment DECREASED Poikilocytosis Anisocytosis SLIGHT Ovalocytes RBC Morph Comment Carbonic Acid HCO3/H2CO3 Ratio ABG pH ABG pCO2 ABG pO2 ABG HCO3 ABG Total CO2 ABG O2 Saturation ABG Base Excess FiO2 Sodium Potassium Chloride Carbon Dioxide Anion Gap BUN Creatinine Est GFR ( Amer) Est GFR (MDRD) Non-Af Glucose POC Glucose Hemoglobin A1c % Lactic Acid 3.3 H Calcium Total Bilirubin Direct Bilirubin Neonat Total Bilirubin Neonat Direct Bilirubin Neonat Indirect Bili AST ALT Alkaline Phosphatase Creatine Kinase CK-MB (CK-2) Troponin I NT-Pro-B Natriuret Pep Total Protein Albumin Triglycerides Cholesterol LDL Cholesterol Direct VLDL Cholesterol HDL Cholesterol TSH Urine Color Urine Appearance Urine pH Ur Specific [place] Urine Protein Urine Glucose (UA) Urine Ketones Urine Blood Urine Nitrite Urine Bilirubin Urine Urobilinogen Ur Leukocyte Esterase Urine WBC (Auto) Urine RBC (Auto) Urine Mucus (Auto) Urine Ascorbic Acid Time Trough Drawn Vancomycin Trough Influenza A (Rapid) NEGATIVE Influenza B (Rapid) NEGATIVE 12/21/18 12/21/18 12/21/18 08:19 12:00 12:10 WBC RBC Hgb Hct MCV MCH MCHC RDW Plt Count Lymph % (Auto) [place]vin % (Auto) Eos % (Auto) Baso % (Auto) Absolute Neuts (auto) Absolute Lymphs (auto) Absolute Monos (auto) Absolute Eos (auto) Absolute Basos (auto) Total Counted Seg Neutrophils % Seg Neuts % (Manual) Band Neutrophils % Lymphocytes % (Manual) Atypical Lymphs % Monocytes % (Manual) Eosinophils % (Manual) Basophils % (Manual) Abs Neuts (Manual) Abs Lymphs (Manual) Abs Monocytes (Manual) Absolute Eos (Manual) Abs Basophils (Manual) Platelet Comment Poikilocytosis Anisocytosis Ovalocytes RBC Morph Comment Carbonic Acid HCO3/H2CO3 Ratio ABG pH ABG pCO2 ABG pO2 ABG HCO3 ABG Total CO2 ABG O2 Saturation ABG Base Excess FiO2 Sodium 139.5 Potassium 3.4 L Chloride 108 H Carbon Dioxide 22 Anion Gap 10 BUN 28 H Creatinine 1.43 H Est GFR ( Amer) > 60 Est GFR (MDRD) Non-Af 52 L Glucose 200 H POC Glucose 312 H Hemoglobin A1c % Lactic Acid 3.2 H Calcium 8.7 Total Bilirubin 0.9 Direct Bilirubin 0.3 Neonat Total Bilirubin Not Reportable Neonat Direct Bilirubin Not Reportable Neonat Indirect Bili Not Reportable AST 28 ALT 30 Alkaline Phosphatase 46 Creatine Kinase CK-MB (CK-2) Troponin I NT-Pro-B Natriuret Pep Total Protein 5.5 L Albumin 3.1 L Triglycerides Cholesterol LDL Cholesterol Direct VLDL Cholesterol HDL Cholesterol TSH Urine Color Urine Appearance Urine pH Ur Specific [place] Urine Protein Urine Glucose (UA) Urine Ketones Urine Blood Urine Nitrite Urine Bilirubin Urine Urobilinogen Ur Leukocyte Esterase Urine WBC (Auto) Urine RBC (Auto) Urine Mucus (Auto) Urine Ascorbic Acid Time Trough Drawn Vancomycin Trough Influenza A (Rapid) Influenza B (Rapid) 12/21/18 12/21/18 12/21/18 16:04 21:28 21:45 WBC RBC Hgb Hct MCV MCH MCHC RDW Plt Count Lymph % (Auto) [place] % (Auto) Eos % (Auto) Baso % (Auto) Absolute Neuts (auto) Absolute Lymphs (auto) Absolute Monos (auto) Absolute Eos (auto) Absolute Basos (auto) Total Counted Seg Neutrophils % Seg Neuts % (Manual) Band Neutrophils % Lymphocytes % (Manual) Atypical Lymphs % Monocytes % (Manual) Eosinophils % (Manual) Basophils % (Manual) Abs Neuts (Manual) Abs Lymphs (Manual) Abs Monocytes (Manual) Absolute Eos (Manual) Abs Basophils (Manual) Platelet Comment Poikilocytosis Anisocytosis Ovalocytes RBC Morph Comment Carbonic Acid HCO3/H2CO3 Ratio ABG pH ABG pCO2 ABG pO2 ABG HCO3 ABG Total CO2 ABG O2 Saturation ABG Base Excess FiO2 Sodium Potassium Chloride Carbon Dioxide Anion Gap BUN Creatinine 1.44 H Est GFR ( Amer) > 60 Est GFR (MDRD) Non-Af 51 L Glucose POC Glucose 243 H 257 H Hemoglobin A1c % Lactic Acid Calcium Total Bilirubin Direct Bilirubin Neonat Total Bilirubin Neonat Direct Bilirubin Neonat Indirect Bili AST ALT Alkaline Phosphatase Creatine Kinase CK-MB (CK-2) Troponin I NT-Pro-B Natriuret Pep Total Protein Albumin Triglycerides Cholesterol LDL Cholesterol Direct VLDL Cholesterol HDL Cholesterol TSH Urine Color Urine Appearance Urine pH Ur Specific [place] Urine Protein Urine Glucose (UA) Urine Ketones Urine Blood Urine Nitrite Urine Bilirubin Urine Urobilinogen Ur Leukocyte Esterase Urine WBC (Auto) Urine RBC (Auto) Urine Mucus (Auto) Urine Ascorbic Acid Time Trough Drawn Vancomycin Trough Influenza A (Rapid) Influenza B (Rapid) 12/21/18 12/22/18 12/22/18 21:45 04:15 04:15 WBC 15.6 H RBC 3.66 L Hgb 10.9 L Hct 32.1 L MCV 88 MCH 29.7 MCHC 33.8 RDW 14.0 Plt Count 142 L Lymph % (Auto) Not Reportable Garvin % (Auto) Not Reportable Eos % (Auto) Not Reportable Baso % (Auto) Not Reportable Absolute Neuts (auto) Not Reportable Absolute Lymphs (auto) Not Reportable Absolute Monos (auto) Not Reportable Absolute Eos (auto) Not Reportable Absolute Basos (auto) Not Reportable Total Counted 100 Seg Neutrophils % Not Reportable Seg Neuts % (Manual) 91 H Band Neutrophils % 3 Lymphocytes % (Manual) 2 L Atypical Lymphs % Monocytes % (Manual) 4 Eosinophils % (Manual) 0 Basophils % (Manual) 0 Abs Neuts (Manual) 14.7 H Abs Lymphs (Manual) 0.3 L Abs Monocytes (Manual) 0.6 Absolute Eos (Manual) 0.0 Abs Basophils (Manual) 0.0 Platelet Comment DECREASED Poikilocytosis Anisocytosis SLIGHT Ovalocytes RBC Morph Comment Carbonic Acid HCO3/H2CO3 Ratio ABG pH ABG pCO2 ABG pO2 ABG HCO3 ABG Total CO2 ABG O2 Saturation ABG Base Excess FiO2 Sodium Potassium Chloride Carbon Dioxide Anion Gap BUN Creatinine Est GFR ( Amer) Est GFR (MDRD) Non-Af Glucose POC Glucose Hemoglobin A1c % Lactic Acid 1.7 Calcium Total Bilirubin Direct Bilirubin Neonat Total Bilirubin Neonat Direct Bilirubin Neonat Indirect Bili AST ALT Alkaline Phosphatase Creatine Kinase CK-MB (CK-2) Troponin I NT-Pro-B Natriuret Pep Total Protein Albumin Triglycerides Cholesterol LDL Cholesterol Direct VLDL Cholesterol HDL Cholesterol TSH Urine Color Urine Appearance Urine pH Ur Specific [place] Urine Protein Urine Glucose (UA) Urine Ketones Urine Blood Urine Nitrite Urine Bilirubin Urine Urobilinogen Ur Leukocyte Esterase Urine WBC (Auto) Urine RBC (Auto) Urine Mucus (Auto) Urine Ascorbic Acid Time Trough Drawn 2145 Vancomycin Trough 11.1 Influenza A (Rapid) Influenza B (Rapid) 12/22/18 12/22/18 12/22/18 04:15 07:33 11:05 WBC RBC Hgb Hct MCV MCH MCHC RDW Plt Count Lymph % (Auto) Garvin % (Auto) Eos % (Auto) Baso % (Auto) Absolute Neuts (auto) Absolute Lymphs (auto) Absolute Monos (auto) Absolute Eos (auto) Absolute Basos (auto) Total Counted Seg Neutrophils % Seg Neuts % (Manual) Band Neutrophils % Lymphocytes % (Manual) Atypical Lymphs % Monocytes % (Manual) Eosinophils % (Manual) Basophils % (Manual) Abs Neuts (Manual) Abs Lymphs (Manual) Abs Monocytes (Manual) Absolute Eos (Manual) Abs Basophils (Manual) Platelet Comment Poikilocytosis Anisocytosis Ovalocytes RBC Morph Comment Carbonic Acid HCO3/H2CO3 Ratio ABG pH ABG pCO2 ABG pO2 ABG HCO3 ABG Total CO2 ABG O2 Saturation ABG Base Excess FiO2 Sodium 138.0 Potassium 3.7 Chloride 110 H Carbon Dioxide 20 L Anion Gap 8 BUN 33 H Creatinine 1.41 H Est GFR ( Amer) > 60 Est GFR (MDRD) Non-Af 53 L Glucose 299 H POC Glucose 256 H 339 H Hemoglobin A1c % Lactic Acid Calcium 8.7 Total Bilirubin 0.5 Direct Bilirubin 0.2 Neonat Total Bilirubin Not Reportable Neonat Direct Bilirubin Not Reportable Neonat Indirect Bili Not Reportable AST 22 ALT 29 Alkaline Phosphatase 51 Creatine Kinase CK-MB (CK-2) Troponin I NT-Pro-B Natriuret Pep Total Protein 5.4 L Albumin 2.7 L Triglycerides Cholesterol LDL Cholesterol Direct VLDL Cholesterol HDL Cholesterol TSH Urine Color Urine Appearance Urine pH Ur Specific [place] Urine Protein Urine Glucose (UA) Urine Ketones Urine Blood Urine Nitrite Urine Bilirubin Urine Urobilinogen Ur Leukocyte Esterase Urine WBC (Auto) Urine RBC (Auto) Urine Mucus (Auto) Urine Ascorbic Acid Time Trough Drawn Vancomycin Trough Influenza A (Rapid) Influenza B (Rapid) 12/22/18 12/22/18 12/23/18 15:12 21:21 06:26 WBC 16.0 H RBC 3.80 L Hgb 11.3 L Hct 33.6 L MCV 88 MCH 29.6 MCHC 33.5 RDW 13.9 Plt Count 167 Lymph % (Auto) Not Reportable Garvin % (Auto) Not Reportable Eos % (Auto) Not Reportable Baso % (Auto) Not Reportable Absolute Neuts (auto) Not Reportable Absolute Lymphs (auto) Not Reportable Absolute Monos (auto) Not Reportable Absolute Eos (auto) Not Reportable Absolute Basos (auto) Not Reportable Total Counted 100 Seg Neutrophils % Not Reportable Seg Neuts % (Manual) 87 H Band Neutrophils % 4 Lymphocytes % (Manual) 3 L Atypical Lymphs % Monocytes % (Manual) 5 Eosinophils % (Manual) 0 Basophils % (Manual) 1 Abs Neuts (Manual) 14.6 H Abs Lymphs (Manual) 0.5 Abs Monocytes (Manual) 0.8 Absolute Eos (Manual) 0.0 Abs Basophils (Manual) 0.2 Platelet Comment ADEQUATE Poikilocytosis Anisocytosis Ovalocytes RBC Morph Comment NORMO-CYTIC/CHROMIC Carbonic Acid HCO3/H2CO3 Ratio ABG pH ABG pCO2 ABG pO2 ABG HCO3 ABG Total CO2 ABG O2 Saturation ABG Base Excess FiO2 Sodium Potassium Chloride Carbon Dioxide Anion Gap BUN Creatinine Est GFR ( Amer) Est GFR (MDRD) Non-Af Glucose POC Glucose 235 H 337 H Hemoglobin A1c % Lactic Acid Calcium Total Bilirubin Direct Bilirubin Neonat Total Bilirubin Neonat Direct Bilirubin Neonat Indirect Bili AST ALT Alkaline Phosphatase Creatine Kinase CK-MB (CK-2) Troponin I NT-Pro-B Natriuret Pep Total Protein Albumin Triglycerides Cholesterol LDL Cholesterol Direct VLDL Cholesterol HDL Cholesterol TSH Urine Color Urine Appearance Urine pH Ur Specific [place] Urine Protein Urine Glucose (UA) Urine Ketones Urine Blood Urine Nitrite Urine Bilirubin Urine Urobilinogen Ur Leukocyte Esterase Urine WBC (Auto) Urine RBC (Auto) Urine Mucus (Auto) Urine Ascorbic Acid Time Trough Drawn Vancomycin Trough Influenza A (Rapid) Influenza B (Rapid) 12/23/18 12/23/18 12/23/18 06:26 07:26 11:43 WBC RBC Hgb Hct MCV MCH MCHC RDW Plt Count Lymph % (Auto) Garvin % (Auto) Eos % (Auto) Baso % (Auto) Absolute Neuts (auto) Absolute Lymphs (auto) Absolute Monos (auto) Absolute Eos (auto) Absolute Basos (auto) Total Counted Seg Neutrophils % Seg Neuts % (Manual) Band Neutrophils % Lymphocytes % (Manual) Atypical Lymphs % Monocytes % (Manual) Eosinophils % (Manual) Basophils % (Manual) Abs Neuts (Manual) Abs Lymphs (Manual) Abs Monocytes (Manual) Absolute Eos (Manual) Abs Basophils (Manual) Platelet Comment Poikilocytosis Anisocytosis Ovalocytes RBC Morph Comment Carbonic Acid HCO3/H2CO3 Ratio ABG pH ABG pCO2 ABG pO2 ABG HCO3 ABG Total CO2 ABG O2 Saturation ABG Base Excess FiO2 Sodium 141.0 Potassium 3.6 Chloride 111 H Carbon Dioxide 20 L Anion Gap 10 BUN 37 H Creatinine 1.40 H Est GFR ( Amer) > 60 Est GFR (MDRD) Non-Af 53 L Glucose 295 H POC Glucose 268 H 262 H Hemoglobin A1c % Lactic Acid Calcium 8.7 Total Bilirubin Direct Bilirubin Neonat Total Bilirubin Neonat Direct Bilirubin Neonat Indirect Bili AST ALT Alkaline Phosphatase Creatine Kinase CK-MB (CK-2) Troponin I NT-Pro-B Natriuret Pep Total Protein Albumin Triglycerides Cholesterol LDL Cholesterol Direct VLDL Cholesterol HDL Cholesterol TSH Urine Color Urine Appearance Urine pH Ur Specific [place] Urine Protein Urine Glucose (UA) Urine Ketones Urine Blood Urine Nitrite Urine Bilirubin Urine Urobilinogen Ur Leukocyte Esterase Urine WBC (Auto) Urine RBC (Auto) Urine Mucus (Auto) Urine Ascorbic Acid Time Trough Drawn Vancomycin Trough Influenza A (Rapid) Influenza B (Rapid) 12/23/18 12/23/18 17:04 21:13 WBC RBC Hgb Hct MCV MCH MCHC RDW Plt Count Lymph % (Auto) [place] % (Auto) Eos % (Auto) Baso % (Auto) Absolute Neuts (auto) Absolute Lymphs (auto) Absolute Monos (auto) Absolute Eos (auto) Absolute Basos (auto) Total Counted Seg Neutrophils % Seg Neuts % (Manual) Band Neutrophils % Lymphocytes % (Manual) Atypical Lymphs % Monocytes % (Manual) Eosinophils % (Manual) Basophils % (Manual) Abs Neuts (Manual) Abs Lymphs (Manual) Abs Monocytes (Manual) Absolute Eos (Manual) Abs Basophils (Manual) Platelet Comment Poikilocytosis Anisocytosis Ovalocytes RBC Morph Comment Carbonic Acid HCO3/H2CO3 Ratio ABG pH ABG pCO2 ABG pO2 ABG HCO3 ABG Total CO2 ABG O2 Saturation ABG Base Excess FiO2 Sodium Potassium Chloride Carbon Dioxide Anion Gap BUN Creatinine Est GFR ( Amer) Est GFR (MDRD) Non-Af Glucose POC Glucose 265 H 218 H Hemoglobin A1c % Lactic Acid Calcium Total Bilirubin Direct Bilirubin Neonat Total Bilirubin Neonat Direct Bilirubin Neonat Indirect Bili AST ALT Alkaline Phosphatase Creatine Kinase CK-MB (CK-2) Troponin I NT-Pro-B Natriuret Pep Total Protein Albumin Triglycerides Cholesterol LDL Cholesterol Direct VLDL Cholesterol HDL Cholesterol TSH Urine Color Urine Appearance Urine pH Ur Specific [place] Urine Protein Urine Glucose (UA) Urine Ketones Urine Blood Urine Nitrite Urine Bilirubin Urine Urobilinogen Ur Leukocyte Esterase Urine WBC (Auto) Urine RBC (Auto) Urine Mucus (Auto) Urine Ascorbic Acid Time Trough Drawn Vancomycin Trough Influenza A (Rapid) Influenza B (Rapid) Renal Ultrasound 12/20/18 00:00 IMPRESSION: NORMAL RENAL AND BLADDER ULTRASOUND. Chest X-Ray 12/20/18 09:04 IMPRESSION: Heterogeneous opacity of the left lung base, concerning for infection or aspiration. Possible small left pleural effusion. Cardiomegaly. OFFICE WORK UP. On October 12, 2018 the patient had an echocardiogram in the office which showed normal left ventricular chamber size with normal left ventricular hypertrophy. Normal LV ejection fraction 65%. There was mild diastolic dysfunction. Left atrium was mildly dilated. There is no aortic stenosis or aortic regurgitation. There is mild mitral regurgitation with no mitral valve prolapse or mitral stenosis. There is trace tricuspid regurgitation with no evidence of pulmonary hypertension. There is no pericardial effusion. On 10/09/2018 the patient underwent a EKG treadmill stress test in the office. The patient exercised only for 4 minutes and 4 seconds and achieved a workload of 5.80 METS. He reached a peak heart rate of 145 bpm which is 87% maximum predicted heart rate for age. The resting EKG was normal. There is no EKG changes of exercise-induced ischemia. Blood pressure response was normal. The overall impression that this was a normal stress test at low level of exercise. The patient was encouraged to increase her activity and start an exercise program. Chest/Abdomen CTA 12/20/18 09:11 IMPRESSION: Alveolar consolidation in the left lower lobe concerning for pneumonia. No pulmonary embolus. IMPRESSION/RECOMMENDATION: 1. New onset atrial fibrillation. This is the first episode. Agree with starting the patient on Cardizem. Once the acute exacerbation of asthma cataract is over then will consider starting the patient on sotalol if the patient does convert to sinus rhythm. At present we will hold off on anticoagulation. Will let the patient decide with a once a full dose aspirin or a newer oral anticoagulation agent. 2. Acute asthmatic attack. Patient with history of asthma. Continue bronchodilators and steroids. 3. Left lower lobe pneumonia. Continue antibiotics. 4. Hypertension: Blood pressure well controlled. 5. History of depression: Well-controlled on current antidepressants. Continue the same. Medications reviewed. Medication regimen and management plan discussed with attending physician. Medical decision making is of high complexity. 60 minutes spent on this patient with more than 50% of time spent in direct patient care.
[2018-12-23 22:10] LABS: VANCOMYCIN,TROUGH 11.6 ug/mL (5.0-20.0)
[2018-12-23] MEDS ORDERED: DILTIAZEM HCL 60 MG TABLET ONE (22:29)
[2018-12-23] MEDS: MONTELUKAST SODIUM 10 MG TABLET PO SCH (22:30)
[2018-12-24] MEDS: PIPERACILLIN SODIUM/TAZOBACTAM 4.5 GM in NORMAL SALINE 100 ML IV SCH ×5 (00:15→23:46)
[2018-12-24] MEDS: PANTOPRAZOLE SODIUM 40 MG TABLET.DR PO SCH ×2 (05:54→17:07)
[2018-12-24] MEDS: METHYLPREDNISOLONE INJ 40 MG/1 ML SDV IV SCH ×3 (05:54→20:59)
[2018-12-24] MEDS: DILTIAZEM HCL 60 MG TABLET PO SCH (05:54)
--- NOTE | 2018-12-24 07:33 | EKG REPORT ---
SEVERITY:- ABNORMAL ECG - ATRIAL FIBRILLATION, V-RATE 52-92 : Confirmed by: Ric Colbert MD 24-Dec-2018 07:32:17
[2018-12-24] MEDS: DOCUSATE SODIUM 100 MG CAPSULE PO SCH ×2 (09:59→17:02)
[2018-12-24] MEDS: FUROSEMIDE 20 MG TABLET PO SCH (10:09)
[2018-12-24] MEDS: INSULIN LISPRO 100 UNIT/ML 3 ML VIAL SUBCUT SCH ×4 (10:09→22:22)
[2018-12-24] MEDS: CHOLECALCIFEROL (D3) 1,000 UNIT (25 MCG) TABLET PO SCH (10:10)
[2018-12-24] MEDS: VANCOMYCIN HCL 1,250 MG in DEXTROSE 5%-WATER 250 ML IV SCH ×2 (10:10→20:59)
[2018-12-24] MEDS: SERTRALINE HCL 50 MG TABLET PO SCH (10:10)
[2018-12-24] MEDS ORDERED: SOTALOL HCL 80 MG TABLET PO ONE ×2 (11:00→20:45)
--- NOTE | 2018-12-24 13:17 | Progress Note Acknowledgement ---
Progress Note Acknowledgement Progess Note Acknowledgement: I, the undersigned member of the medical staff with appropriate privileges and with supervisory authority over [ PAC ], a dependent practice allied health professional, acknowledge that I have reviewed the progress notes entered on this patient, and in my professional judgment believe that the assessment made and/or any care evidenced was appropriate
--- NOTE | 2018-12-24 13:24 | PDOC PROGRESS REPORT ---
Subjective Progress Note for:: 12/24/18 Subjective:: 3-year-old male admitted through the emergency room for left lower lobe pneumonia and atrial fibrillation. Patient states that he knew for the last 3 years that he has had some sort of fluttering or palpitations with his heart Reason For Visit: SEPSIS Physical Exam Vital Signs: Temp Pulse Resp BP Pulse Ox 97.6 F 62 16 121/77 98 12/24/18 11:20 12/24/18 11:20 12/24/18 11:20 12/24/18 11:20 12/24/18 11:20 Intake & Output 12/23/18 12/24/18 12/25/18 06:59 06:59 06:59 Intake Total 2900 2640 450 Balance 2900 2640 450 Weight 107.3 kg 109 kg General appearance: PRESENT: no acute distress Respiratory exam: PRESENT: clear to auscultation antoine. ABSENT: rales, rhonchi, wheezes Cardiovascular exam: PRESENT: RRR. ABSENT: diastolic murmur, rubs, systolic murmur Neurological exam: PRESENT: alert, awake, oriented to person, oriented to place, oriented to time, oriented to situation, CN II-XII grossly intact. ABSENT: motor sensory deficit Psychiatric exam: PRESENT: appropriate affect, normal mood. ABSENT: homicidal ideation, suicidal ideation Results Laboratory Results: 12/23/18 06:26 12/23/18 21:35 12/23/18 21:35 Creatinine 1.40 H Est GFR ( Amer) > 60 12/20/18 12/20/18 12/20/18 07:12 07:12 15:02 Creatine Kinase 276 H CK-MB (CK-2) 4.19 Troponin I < 0.012 < 0.012 NT-Pro-B Natriuret Pep 1320 H Impressions: Renal Ultrasound 12/20/18 00:00 IMPRESSION: NORMAL RENAL AND BLADDER ULTRASOUND. Chest X-Ray 12/20/18 09:04 IMPRESSION: Heterogeneous opacity of the left lung base, concerning for infection or aspiration. Possible small left pleural effusion. Cardiomegaly. Chest/Abdomen CTA 12/20/18 09:11 IMPRESSION: Alveolar consolidation in the left lower lobe concerning for pneumonia. No pulmonary embolus. Assessment and Plan - Diagnosis (1) Asthma Is this a current diagnosis for this admission?: Yes Plan: 12/24/2018 patient states that he has had a recurrence of asthma patient states that he has had a flareup on this occasion patient uses a inhaler and a nebulizer machine at home. patient is currently in no distress (2) Hypertension Is this a current diagnosis for this admission?: Yes Plan: Patient was on lisinopril and HCTZ prior to admission blood pressures in the hospital have been well controlled 121/77, even though he is not on his home meds (3) A-fib Qualifiers: Atrial fibrillation type: paroxysmal Qualified Code(s): I48.0 - Paroxysmal atrial fibrillation Is this a current diagnosis for this admission?: Yes Plan: [id number] score of 2-3 Likely paroxysmal as patient is reporting intermittent palpitation for the last 2 years and elevated proBNP on admission. proBNP 1320 on admission could be due to either CHF due to chronic paroxysmal undiagnosed A. fib VS CKD. TSH and lipid panel WNL. Negative outpatient echo and a stress test reported by the patient. Sees Dr. Lora as outpatient. Currently rate controlled on Cardizem 60 mg p.o. every 6 hours. Continue Cardizem, with [id number] score of 2-3 no need chronic anticoagulation. Will defer decision to salt grinder. Cardiology consulted. Follow-up recommendation. Radiology has been consulted Dr. Lora recommended patient on Cardizem and switching to sotalol hold off on anticoagulation at this point (4) Pneumonia Qualifiers: Pneumonia type: due to unspecified organism Laterality: left Lung lo cation: lower lobe of lung Qualified Code(s): J18.1 - Lobar pneumonia, unspecified organism Is this a current diagnosis for this admission?: Yes Plan: Likely community-acquired due to gram-positive such as strep pneumonia. Denies any history of sick contact, recent travel. Management as per #1. 1719 patient is currently on Zosyn day 5 vancomycin day 3 and is improving and will repeat chest x-ray. - Time Time Spent with patient: 35 or more minutes
--- NOTE | 2018-12-24 14:49 | RADIOLOGY REPORT (SQ) ---
EXAM DESCRIPTION: CHEST 2 VIEWS COMPLETED DATE/TIME: 12/24/2018 2:36 pm REASON FOR STUDY: follow up pneumonia COMPARISON: 12/20/2018 EXAM PARAMETERS: NUMBER OF VIEWS: two views TECHNIQUE: Digital Frontal and Lateral radiographic views of the chest acquired. RADIATION DOSE: NA LIMITATIONS: none FINDINGS: LUNGS AND PLEURA: Persistent left lower lobe infiltrate consistent with pneumonia. There are small pleural effusions. These have developed since prior study. MEDIASTINUM AND HILAR STRUCTURES: No masses or contour abnormalities. HEART AND VASCULAR STRUCTURES: Heart normal size. No evidence for failure. BONES: No acute findings. HARDWARE: None in the chest. OTHER: No other significant finding. IMPRESSION: Persistent left lower lobe pneumonia. The patient has developed small bilateral pleural effusions. TECHNICAL DOCUMENTATION: JOB ID: [id number] [email or web address] Rights Reserved Reading location - IP/workstation name: [email or web address]
--- NOTE | 2018-12-24 20:03 | Progress Note ---
Provider Note Provider Note: CARDIOLOGY PROGRESS NOTE by Dr. Chelita Lora on 12/24/2018. SUBJECTIVE: The patient continues to be in atrial fibrillation. When addition was made to place the patient on sotalol his heart rate was 55 bpm and sotalol was not given. The patient states he is not wheezing anymore. His cough is improved. He has no shortness of breath at rest. He still complains of mild pedal edema secondary to steroids. There is no PND orthopnea. There is no chest pain or discomfort. There is no TIA CVA symptoms. PHYSICAL EXAMINATION: The patient is mildly obese in no acute distress. Selected Entries 12/24/18 16:04 Temperature 98.2 F Temperature Oral Source Pulse Rate 85 Respiratory 16 Rate Blood Pressure 128/79 H Blood Pressure 95 Mean BP Location Right Arm BP Position Sitting O2 Sat by Pulse 96 Oximetry Oxygen Delivery Room Air Method HEAD: Atraumatic, normocephalic. EYES: Pupils equal round and reactive to light, extraocular movements intact, sclera anicteric, conjunctiva are normal. ENT: TMs normal, nares patent, oropharynx clear without exudates. Moist mucous membranes. NECK: Normal range of motion, supple without lymphadenopathy or JVD. LUNGS: Breath sounds clear to auscultation bilaterally and equal. No wheezes rales or rhonchi. There is no chest wall tenderness HEART: S1-S2 is heard. S1 is of variable intensity. There is no S3 gallop. There is no S4 gallop. There is systolic murmur left sternal border and the apex, there is no rub ABDOMEN: Soft, nontender, normoactive bowel sounds. No guarding, no rebound. No masses appreciated. EXTREMITIES: Normal range of motion, no pitting or edema. No clubbing or cyanosis. NEUROLOGICAL: Cranial nerves II through XII grossly intact. Normal speech, normal gait. There is no focal deficits. Sensations are normal bilaterally. PSYCH: Normal mood, normal affect. His judgment and insight are intact SKIN: Warm, Dry, normal turgor, no rashes or lesions noted. Labs- All tests 24 hr 12/23/18 12/23/18 12/23/18 21:13 21:35 21:35 Creatinine 1.40 H Est GFR ( Amer) > 60 Est GFR (MDRD) Non-Af 53 L POC Glucose 218 H Time Trough Drawn 2135 Vancomycin Trough 11.6 12/24/18 12/24/18 12/24/18 07:27 11:19 16:08 Creatinine Est GFR ( Amer) Est GFR (MDRD) Non-Af POC Glucose 186 H 254 H 245 H Time Trough Drawn Vancomycin Trough Renal Ultrasound 12/20/18 00:00 IMPRESSION: NORMAL RENAL AND BLADDER ULTRASOUND. Chest X-Ray 12/20/18 09:04 IMPRESSION: Heterogeneous opacity of the left lung base, concerning for infection or aspiration. Possible small left pleural effusion. Cardiomegaly. Chest/Abdomen CTA 12/20/18 09:11 IMPRESSION: Alveolar consolidation in the left lower lobe concerning for pneumonia. No pulmonary embolus. Chest X-Ray 12/24/18 00:00 IMPRESSION: Persistent left lower lobe pneumonia. The patient has developed small bilateral pleural effusions. The patient's chads vas 2 score is 1. Hence patient is moderate risk for stroke. It has been shown that oral anticoagulation agents have a benefit in stroke prevention or aspirin alone. Will discuss with the patient patient's . IMPRESSION/RECOMMENDATION: 1. New onset atrial fibrillation. This is the first episode. Agree with starting the patient on Cardizem. Once the acute exacerbation of asthma cataract is over then will consider starting the patient on sotalol if the patient does convert to sinus rhythm. At present we will hold off on anticoagulation. Will let the patient decide with a once a full dose aspirin or a newer oral anticoagulation agent. 2. Acute asthmatic attack. Patient with history of asthma. Continue bronchodilators and steroids. 3. Left lower lobe pneumonia. Continue antibiotics. 4. Hypertension: Blood pressure well controlled. 5. History of depression: Well-controlled on current antidepressants. Continue the same. Medications reviewed. Medication regimen and management plan discussed with attending physician. Medical decision making is of high complexity. 40 minutes spent on this patient with more than 50% of time spent in direct patient care.
[2018-12-24] MEDS: MONTELUKAST SODIUM 10 MG TABLET PO SCH (20:59)
[2018-12-25] MEDS: PIPERACILLIN SODIUM/TAZOBACTAM 4.5 GM in NORMAL SALINE 100 ML IV SCH ×7 (00:40→23:10)
[2018-12-25] MEDS: METHYLPREDNISOLONE INJ 40 MG/1 ML SDV IV SCH (05:30)
[2018-12-25] MEDS: PANTOPRAZOLE SODIUM 40 MG TABLET.DR PO SCH ×2 (05:30→17:49)
--- NOTE | 2018-12-25 07:15 | EKG REPORT ---
SEVERITY:- ABNORMAL ECG - ATRIAL FIBRILLATION, V-RATE 49-53 LOW VOLTAGE IN FRONTAL LEADS : Confirmed by: Ric Colbert MD 25-Dec-2018 07:14:23
[2018-12-25] MEDS: SERTRALINE HCL 50 MG TABLET PO SCH (09:08)
[2018-12-25] MEDS: VANCOMYCIN HCL 1,250 MG in DEXTROSE 5%-WATER 250 ML IV SCH ×2 (09:08→21:07)
[2018-12-25] MEDS: CHOLECALCIFEROL (D3) 1,000 UNIT (25 MCG) TABLET PO SCH (09:09)
[2018-12-25] MEDS: DOCUSATE SODIUM 100 MG CAPSULE PO SCH ×2 (09:09→17:41)
[2018-12-25] MEDS: INSULIN LISPRO 100 UNIT/ML 3 ML VIAL SUBCUT SCH ×4 (09:09→21:07)
[2018-12-25] MEDS: FUROSEMIDE 20 MG TABLET PO SCH (09:09)
[2018-12-25 10:01] LABS: HEMATOCRIT 40.2 % (37.9-51.0); MEAN CORPUSCULAR VOLUME 88 fl (80-97); PLATELET COUNT 218 10^3/uL (150-450); RED BLOOD COUNT 4.55 10^6/uL (4.35-5.55); RED CELL DISTRIBUTION WIDTH 14.1 % (11.5-14.0); WHITE BLOOD COUNT 18.8 10^3/uL (4.0-10.5)
[2018-12-25 10:18] LABS: ANION GAP 8 (5-19); BLOOD UREA NITROGEN 38 mg/dL (7-20); CARBON DIOXIDE 24 mmol/L (22-30); CHLORIDE 106 mmol/L (98-107); GLUCOSE 249 mg/dL (75-110); POTASSIUM 4.6 mmol/L (3.6-5.0)
[2018-12-25 10:34] LABS: HEMOGLOBIN 13.7 g/dL (13.5-17.0)
[2018-12-25 11:10] LABS: ABSOLUTE LYMPHOCYTES# (MANUAL) 1.5 10^3/uL (0.5-4.7); ABSOLUTE MONOCYTES # (MANUAL) 1.7 10^3/uL (0.1-1.4); ANISOCYTOSIS SLIGHT; BAND NEUTROPHILS % (MANUAL) 5 % (3-5); BASOPHILS % (MANUAL) 0 % (0-2); EOSINOPHILS % (MANUAL) 0 % (0-6); LYMPHOCYTES % (MANUAL) 8 % (13-45); MONOCYTES % (MANUAL) 9 % (3-13); MYELOCYTES % (MANUAL) 1 % (0); SEGMENTED NEUTROPHILS % (MAN) 77 % (42-78); TOTAL CELLS COUNTED 100
[2018-12-25 11:11] LABS: PLATELET COMMENT ADEQUATE
[2018-12-25] MEDS: APIXABAN 5 MG TABLET PO SCH ×2 (12:02→17:48)
[2018-12-25] MEDS: DILTIAZEM HCL 30 MG TABLET PO SCH ×3 (12:02→23:16)
--- NOTE | 2018-12-25 15:06 | PDOC PROGRESS REPORT ---
Subjective Progress Note for:: 12/25/18 Subjective:: 53-year-old male admitted through the emergency room for left lower lobe pneumonia and atrial fibrillation. Patient states that he knew for the last 3 years that he has had some sort of fluttering or palpitations with his heart 12/25/2018 patient did not convert with sotalol and Dr. Lora amended switching the patient to a low dose of Cardizem every every 6 hours. We will add patient's lisinopril back to his medications once he converts. Will decrease lisinopril dosing and discontinue HCTZ Discontinue Solu-Medrol and switch to p.o. prednisone and taper over the next 48 hours Continue Zosyn and vancomycin until time of discharge Reason For Visit: SEPSIS Physical Exam Vital Signs: Temp Pulse Resp BP Pulse Ox 97.9 F 66 16 147/90 H 98 12/25/18 08:06 12/25/18 12:10 12/25/18 12:10 12/25/18 08:06 12/25/18 12:10 Intake & Output 12/24/18 12/25/18 12/26/18 06:59 06:59 06:59 Intake Total 2640 2541 Balance 2640 2541 Weight 109 kg 109.4 kg General appearance: PRESENT: no acute distress, other - Patient's in the room for discussion with cardiology and myself Respiratory exam: PRESENT: clear to auscultation antoine, other - Respiratory distress. ABSENT: rales, rhonchi, wheezes Cardiovascular exam: PRESENT: irregular rhythm Neurological exam: PRESENT: alert, awake, oriented to person, oriented to place, oriented to time, oriented to situation, CN II-XII grossly intact. ABSENT: motor sensory deficit Psychiatric exam: PRESENT: appropriate affect, normal mood. ABSENT: homicidal ideation, suicidal ideation Results Laboratory Results: 12/25/18 09:40 12/25/18 09:40 12/25/18 12/25/18 09:40 09:40 WBC 18.8 H RBC 4.55 Hgb 13.7 D Hct 40.2 MCV 88 MCH 30.0 MCHC 34.0 RDW 14.1 H Plt Count 218 Seg Neutrophils % Not Reportable Sodium 138.0 Potassium 4.6 Chloride 106 Carbon Dioxide 24 Anion Gap 8 BUN 38 H Creatinine 1.25 Est GFR ( Amer) > 60 Glucose 249 H Calcium 9.0 12/20/18 09:31 Blood Blood Culture - Final NO GROWTH IN 5 DAYS 12/20/18 09:20 Blood Blood Culture - Final NO GROWTH IN 5 DAYS 12/20/18 12/20/18 12/20/18 07:12 07:12 15:02 Creatine Kinase 276 H CK-MB (CK-2) 4.19 Troponin I < 0.012 < 0.012 NT-Pro-B Natriuret Pep 1320 H Impressions: Renal Ultrasound 12/20/18 00:00 IMPRESSION: NORMAL RENAL AND BLADDER ULTRASOUND. Chest/Abdomen CTA 12/20/18 09:11 IMPRESSION: Alveolar consolidation in the left lower lobe concerning for pneumonia. No pulmonary embolus. Chest X-Ray 12/24/18 00:00 IMPRESSION: Persistent left lower lobe pneumonia. The patient has developed small bilateral pleural effusions. Assessment and Plan - Diagnosis (1) Asthma Is this a current diagnosis for this admission?: Yes Plan: 12/24/2018 patient states that he has had a recurrence of asthma patient states that he has had a flareup on this occasion patient uses a inhaler and a nebulizer machine at home. patient is currently in no distress 12/25/2018 currently using his Singulair and now on p.o. prednisone (2) Hypertension Is this a current diagnosis for this admission?: Yes Plan: Patient was on lisinopril and HCTZ prior to admission blood pressures in the hospital have been well controlled 121/77, even though he is not on his home meds 12/25/2018 when his blood pressure medicine is resumed will be only lisinopril 10 mg daily (3) A-fib Qualifiers: Atrial fibrillation type: paroxysmal Qualified Code(s): I48.0 - Paroxysmal atrial fibrillation Is this a current diagnosis for this admission?: Yes Plan: [id number] score of 2-3 Likely paroxysmal as patient is reporting intermittent palpitation for the last 2 years and elevated proBNP on admission. proBNP 1320 on admission could be due to either CHF due to chronic paroxysmal undiagnosed A. fib VS CKD. TSH and lipid panel WNL. Negative outpatient echo and a stress test reported by the patient. Sees Dr. Lora as outpatient. Currently rate controlled on Cardizem 60 mg p.o. every 6 hours. Continue Cardizem, with [id number] score of 2-3 no need chronic anticoagulatio n. Will defer decision to retoucher photoengraving. Cardiology consulted. Follow-up recommendation. Radiology has been consulted Dr. Lora recommended patient on Cardizem and switching to sotalol hold off on anticoagulation at this point 12/25/2018 patient's Zenon 2 vas score actually 1, therefore patient will be started on oral anticoagulants as discussed with the patient and his by cardiology She will also be started on liquids 5 mg twice daily Cardizem 80 mg every 6 hours, discontinue sotalol (4) Pneumonia Qualifiers: Pneumonia type: due to unspecified organism Laterality: left Lung location: lower lobe of lung Qualified Code(s): J18.1 - Lobar pneumonia, unspecified organism Is this a current diagnosis for this admission?: Yes Plan: Likely community-acquired due to gram-positive such as strep pneumonia. Denies any history of sick contact, recent travel. Management as per #1. 12/24/18 patient is currently on Zosyn day 5 vancomycin day 3 and is improving and will repeat chest x-ray. 1818-day 6 of Zosyn day 4 of vancomycin culture no growth in 5 days urine culture no growth in 2 days. Chest x-ray today persistent left lower lobe pneumonia white count remains around 18,000. I have discussed with Dr. Carmichael and he has reviewed CT and plain films. He feels we can continue meds as above. WBC could be up due to steroids, clinically patient looks well. - Time Time Spent with patient: 35 or more minutes
[2018-12-25] MEDS: PREDNISONE 20 MG TABLET PO SCH (17:49)
[2018-12-25] MEDS: MONTELUKAST SODIUM 10 MG TABLET PO SCH (21:08)
--- NOTE | 2018-12-25 22:02 | Progress Note ---
Provider Note Provider Note: CARDIOLOGY PROGRESS NOTE by Dr. Chelita Lora on 12/25/2018. SUBJECTIVE: The patient continues to be in atrial fibrillation in spite of her 1 dose of sotalol 80 mg yesterday. The patient still has no further wheezing. There is no cough or sputum production. His leg edema is much improved. There is no chest pain or discomfort. There is no ventricular arrhythmia seen on the monitor. The patient has been in atrial fibrillation for more than 48 hours. Hence we will start the patient on Eliquis 5 mg p.o. twice daily. Also will start the patient on Cardizem 30 mg p.o. every 6 hours. Have discussed the stroke prophylaxis benefits of oral anticoagulation agent with the patient. Note that the patient's corrected Zenon vas 2 score is 1. Hence he is at a moderate risk for stroke. Discussed the option of Coumadin versus the newer anti-coagulation agents given orally. I have discussed with them with Coumadin we need to have periodic blood checks for INR, and drugs and that can interfere with the management of Coumadin. But have also explained to them that there is an antidote if the patient should bleed due to increased INR on Coumadin. I have also discussed that there is near oral anticoagulation agents are as efficacious as Coumadin if not more and diet and usually medications that we cathie e do not interfere with them. The drawback is that if the patient should bleed then there is no antidote, and only supportive care can be given. The patient and the patient's agreed to be on Eliquis 5 mg p.o. twice daily. Hence we will start that. PHYSICAL EXAMINATION: The patient is mildly obese. In no acute distress. He is well-groomed. Selected Entries 12/24/18 11:20 Temperature 97.6 F Temperature Oral Source Pulse Rate 62 Respiratory 16 Rate Blood Pressure 121/77 Blood Pressure 91 Mean BP Location Right Arm BP Position Sitting O2 Sat by Pulse 98 Oximetry Oxygen Delivery Room Air Method HEAD: Atraumatic, normocephalic. EYES: Pupils equal round and reactive to light, extraocular movements intact, sclera anicteric, conjunctiva are normal. ENT: TMs normal, nares patent, oropharynx clear without exudates. Moist mucous membranes. NECK: Normal range of motion, supple without lymphadenopathy or JVD. LUNGS: Breath sounds clear to auscultation bilaterally and equal. No wheezes rales or rhonchi. There is no chest wall tenderness HEART: S1-S2 is heard. S1 is of variable intensity. There is no S3 gallop. There is no S4 gallop. There is systolic murmur left sternal border and the apex, there is no rub ABDOMEN: Soft, nontender, normoactive bowel sounds. No guarding, no rebound. No masses appreciated. EXTREMITIES: Normal range of motion, no pitting or edema. No clubbing or cyanosis. NEUROLOGICAL: Cranial nerves II through XII grossly intact. Normal speech, normal gait. There is no focal deficits. Sensations are normal bilaterally. PSYCH: Normal mood, normal affect. His judgment and insight are intact SKIN: Warm, Dry, normal turgor, no rashes or lesions noted. Labs- All tests 24 hr 12/25/18 12/25/18 12/25/18 09:00 09:40 09:40 WBC 18.8 H RBC 4.55 Hgb 13.7 D Hct 40.2 MCV 88 MCH 30.0 MCHC 34.0 RDW 14.1 H Plt Count 218 Lymph % (Auto) Not Reportable Esmeralda % (Auto) Not Reportable Eos % (Auto) Not Reportable Baso % (Auto) Not Reportable Absolute Neuts (auto) Not Reportable Absolute Lymphs (auto) Not Reportable Absolute Monos (auto) Not Reportable Absolute Eos (auto) Not Reportable Absolute Basos (auto) Not Reportable Total Counted 100 Seg Neutrophils % Not Reportable Seg Neuts % (Manual) 77 Band Neutrophils % 5 Lymphocytes % (Manual) 8 L Monocytes % (Manual) 9 Eosinophils % (Manual) 0 Basophils % (Manual) 0 Myelocytes % 1 H Abs Neuts (Manual) 15.6 H Abs Lymphs (Manual) 1.5 Abs Monocytes (Manual) 1.7 H Absolute Eos (Manual) 0.0 Abs Basophils (Manual) 0.0 Platelet Comment ADEQUATE Anisocytosis SLIGHT Sodium 138.0 Potassium 4.6 Chloride 106 Carbon Dioxide 24 Anion Gap 8 BUN 38 H Creatinine 1.25 Est GFR ( Amer) > 60 Est GFR (MDRD) Non-Af > 60 Glucose 249 H POC Glucose 271 H Calcium 9.0 12/25/18 12/25/18 12/25/18 10:59 16:54 20:29 WBC RBC Hgb Hct MCV MCH MCHC RDW Plt Count Lymph % (Auto) Esmeralda % (Auto) Eos % (Auto) Baso % (Auto) Absolute Neuts (auto) Absolute Lymphs (auto) Absolute Monos (auto) Absolute Eos (auto) Absolute Basos (auto) Total Counted Seg Neutrophils % Seg Neuts % (Manual) Band Neutrophils % Lymphocytes % (Manual) Monocytes % (Manual) Eosinophils % (Manual) Basophils % (Manual) Myelocytes % Abs Neuts (Manual) Abs Lymphs (Manual) Abs Monocytes (Manual) Absolute Eos (Manual) Abs Basophils (Manual) Platelet Comment Anisocytosis Sodium Potassium Chloride Carbon Dioxide Anion Gap BUN Creatinine Est GFR ( Amer) Est GFR (MDRD) Non-Af Glucose POC Glucose 230 H 171 H 179 H Calcium Renal Ultrasound 12/20/18 00:00 IMPRESSION: NORMAL RENAL AND BLADDER ULTRASOUND. Chest X-Ray 12/20/18 09:04 IMPRESSION: Heterogeneous opacity of the left lung base, concerning for infection or aspiration. Possible small left pleural effusion. Cardiomegaly. Chest/Abdomen CTA 12/20/18 09:11 IMPRESSION: Alveolar consolidation in the left lower lobe concerning for pneumonia. No pulmonary embolus. Chest X-Ray 12/24/18 00:00 IMPRESSION: Persistent left lower lobe pneumonia. The patient has developed small bilateral pleural effusions. IMPRESSION/RECOMMENDATION: 1. New onset atrial fibrillation. This is the first episode. Agree with starting the patient on Cardizem. Once the acute exacerbation of asthma cataract is over then will consider starting the patient on sotalol if the patient does convert to sinus rhythm. At present we will hold off on anticoagulation. Will let the patient decide with a once a full dose aspirin or a newer oral anticoagulation agent. 2. Acute asthmatic attack. Patient with history of asthma. Continue broncho dilators and steroids. Still resolved. 3. Left lower lobe pneumonia. Continue antibiotics. We will recheck the patient's chest x-ray in the a.m. 4. Hypertension: Blood pressure well controlled. 5. History of depression: Well-controlled on current antidepressants. Continue the same. 6. Hyperglycemia. Note the patient has no history of diabetes mellitus. Most likely this is steroid-induced hyperglycemia Medications reviewed. Medications adjusted. Management plan and medication regimen discussed with the attending provider on the case. Medical decision making is of high complexity. 40 minutes spent on this patient with more than 50% of time spent in direct patient care. Will follow.
[2018-12-26] MEDS: PIPERACILLIN SODIUM/TAZOBACTAM 4.5 GM in NORMAL SALINE 100 ML IV SCH ×6 (00:15→23:12)
[2018-12-26] MEDS: PANTOPRAZOLE SODIUM 40 MG TABLET.DR PO SCH ×2 (05:40→17:25)
[2018-12-26] MEDS: DILTIAZEM HCL 30 MG TABLET PO SCH ×4 (05:40→23:12)
[2018-12-26] MEDS: DOCUSATE SODIUM 100 MG CAPSULE PO SCH ×2 (09:10→19:22)
[2018-12-26] MEDS: INSULIN LISPRO 100 UNIT/ML 3 ML VIAL SUBCUT SCH ×4 (09:19→21:25)
[2018-12-26] MEDS: SERTRALINE HCL 50 MG TABLET PO SCH (09:20)
[2018-12-26] MEDS: VANCOMYCIN HCL 1,250 MG in DEXTROSE 5%-WATER 250 ML IV SCH (09:20)
[2018-12-26] MEDS: PREDNISONE 20 MG TABLET PO SCH ×2 (09:20→17:25)
[2018-12-26] MEDS: CHOLECALCIFEROL (D3) 1,000 UNIT (25 MCG) TABLET PO SCH (09:20)
[2018-12-26] MEDS: APIXABAN 5 MG TABLET PO SCH ×2 (09:21→17:26)
[2018-12-26] MEDS: FUROSEMIDE 20 MG TABLET PO SCH (09:21)
--- NOTE | 2018-12-26 09:50 | RADIOLOGY REPORT (SQ) ---
EXAM DESCRIPTION: CHEST SINGLE VIEW COMPLETED DATE/TIME: 12/25/2018 10:56 pm REASON FOR STUDY: LLL Pneumonia COMPARISON: 12/24/2018 NUMBER OF VIEWS: One view. TECHNIQUE: Single frontal radiographic image of the chest acquired. LIMITATIONS: None. FINDINGS: LUNGS AND PLEURA: Persistent basilar airspace disease left greater than right aeration is slightly improved when compared to prior study. There are small effusions. MEDIASTINUM AND HILAR STRUCTURES: Stable heart size and mediastinal structures. HEART AND VASCULAR STRUCTURES: Stable appearance. BONES: No acute findings. HARDWARE: None in the chest. OTHER: No other significant finding. IMPRESSION: Persistent basilar airspace disease left greater than right. Small effusions. Findings are improved when compared to prior study. TECHNICAL DOCUMENTATION: JOB ID: [id number] [employer]- All Rights Reserved Reading location - IP/workstation name: [email or web address]
--- NOTE | 2018-12-26 11:21 | PDOC PROGRESS REPORT ---
Subjective Progress Note for:: 12/26/18 Subjective:: 53-year-old male admitted through the emergency room for left lower lobe pneumonia and atrial fibrillation. Patient states that he knew for the last 3 years that he has had some sort of fluttering or palpitations with his heart 12/25/2018 patient did not convert with sotalol and Dr. Lora amended switching the patient to a low dose of Cardizem every every 6 hours. We will add patient's lisinopril back to his medications once he converts. Will decrease lisinopril dosing and discontinue HCTZ Discontinue Solu-Medrol and switch to p.o. prednisone and taper over the next 48 hours Continue Zosyn and vancomycin until time of discharge 12/26/2018 patient is now on Cardizem 120 CD per the anthropological linguist. Dr. Lora states that he can be discharged home on this medication and follow- up with him as an outpatient he will also continue the Eliquis. Plan to discharge tomorrow will continue to wean patient off of steroids the next 72 hours. Reason For Visit: SEPSIS Physical Exam Vital Signs: Temp Pulse Resp BP Pulse Ox 97.9 F 79 17 122/84 96 12/26/18 07:06 12/26/18 07:06 12/26/18 07:06 12/26/18 07:06 12/26/18 07:06 Intake & Output 12/25/18 12/26/18 12/27/18 06:59 06:59 06:59 Intake Total 2541 2380 Balance 2541 2380 Weight 109.4 kg 111.1 kg General appearance: PRESENT: no acute distress, other - Sitting up in the chair with no complaints temperature 97.9 pulse of 79 blood pressure 122/84.. O2 sat 96% on room air Respiratory exam: PRESENT: clear to auscultation antoine. ABSENT: rales, rhonchi, wheezes Cardiovascular exam: PRESENT: irregular rhythm Neurological exam: PRESENT: alert, awake, oriented to person, oriented to place, oriented to time, oriented to situation, CN II-XII grossly intact. ABSENT: mot or sensory deficit Psychiatric exam: PRESENT: appropriate affect, normal mood. ABSENT: homicidal ideation, suicidal ideation Results Laboratory Results: 12/25/18 09:40 12/25/18 09:40 12/25/18 09:40 WBC 18.8 H RBC 4.55 Hgb 13.7 D Hct 40.2 MCV 88 MCH 30.0 MCHC 34.0 RDW 14.1 H Plt Count 218 12/20/18 09:31 Blood Blood Culture - Final NO GROWTH IN 5 DAYS 12/20/18 09:20 Blood Blood Culture - Final NO GROWTH IN 5 DAYS 12/20/18 12/20/18 12/20/18 07:12 07:12 15:02 Creatine Kinase 276 H CK-MB (CK-2) 4.19 Troponin I < 0.012 < 0.012 NT-Pro-B Natriuret Pep 1320 H Impressions: Renal Ultrasound 12/20/18 00:00 IMPRESSION: NORMAL RENAL AND BLADDER ULTRASOUND. Chest/Abdomen CTA 12/20/18 09:11 IMPRESSION: Alveolar consolidation in the left lower lobe concerning for pneumonia. No pulmonary embolus. Chest X-Ray 12/25/18 00:00 IMPRESSION: Persistent basilar airspace disease left greater than right. Small effusions. Findings are improved when compared to prior study. Assessment and Plan - Diagnosis (1) Asthma Is this a current diagnosis for this admission?: Yes Plan: 12/24/2018 patient states that he has had a recurrence of asthma patient states that he has had a flareup on this occasion patient uses a inhaler and a nebulizer machine at home. patient is currently in no distress 12/25/2018 currently using his Singulair and now on p.o. prednisone 12/26/2018 patient taking prednisone 20 mg twice daily. Will discharge tomorrow on just once daily x2 days Sunday and Sunday. Patient has no respiratory distress (2) Hypertension Is this a current diagnosis for this admission?: Yes Plan: Patient was on lisinopril and HCTZ prior to admission blood pressures in the hospital have been well controlled 121/77, even though he is not on his home meds 12/25/2018 when his blood pressure medicine is resumed will be only lisinopril 10 mg daily 12/26/2018 and is currently on Cardizem CD 120, blood pressures are well controlled (3) A-fib Qualifiers: Atrial fibrillation type: paroxysmal Qualified Code(s): I48.0 - Paroxysmal atrial fibrillation Is this a current diagnosis for this admission?: Yes Plan: [id number] score of 2-3 Likely paroxysmal as patient is reporting intermittent palpitation for the last 2 years and elevated proBNP on admission. proBNP 1320 on admission could be due to either CHF due to chronic paroxysmal undiagnosed A. fib VS CKD. TSH and lipid panel WNL. Negative outpatient echo and a stress test reported by the patient. Sees Dr. Lora as outpatient. Currently rate controlled on Cardizem 60 mg p.o. every 6 hours. Continue Cardizem, with [id number] score of 2-3 no need chronic anticoagulation. Will defer decision to anthropological linguist. Cardiology consulted. Follow-up recommendation. Radiology has been consulted Dr. Lora recommended patient on Cardizem and switching to sotalol hold off on anticoagulation at this point 12/25/2018 patient's Zenon 2 vas score actually 1, therefore patient will be started on oral anticoagulants as discussed with the patient and his by cardiology She will also be started on liquids 5 mg twice daily Cardizem 80 mg every 6 hours, discontinue sotalol 12/26/2018 patient was on Cardizem 30 mg every 6 hours, patient is still not converted normal sinus rhythm. A cardiology has recommended discharging him home on Cardizem CD 120 mg daily and follow-up in the office. Patient may need to be cardioverted at a later date. Patient has no chest pain no shortness of breath. (4) Pneumonia Qualifiers: Pneumonia type: due to unspecified organism Laterality: left Lung location: lower lobe of lung Qualified Code(s): J18.1 - Lobar pneumonia, unspecified organism Is this a current diagnosis for this admission?: Yes Plan: Likely community-acquired due to gram-positive such as strep pneumonia. Denies any history of sick contact, recent travel. Management as per #1. 12/24/18 patient is currently on Zosyn day 5 vancomycin day 3 and is improving and will repeat chest x-ray. -day 6 of Zosyn day 4 of vancomycin culture no growth in 5 days urine culture no growth in 2 days. Chest x-ray today persistent left lower lobe pneumonia white count remains around 18,000. I have discussed with Dr. Carmichael and he has reviewed CT and plain films. He feels we can continue meds as above. WBC could be up due to steroids, clinically patient looks well. 12/26/2018 patient has no evidence of sepsis, i.e. signs are stable, no respiratory distress, no altered mental status.. Studies were reviewed yesterd ay We will continue IV antibiotics until tomorrow when he is discharged then switch him over to Levaquin 500 mg x 7 days - Time Time Spent with patient: 35 or more minutes - Discussed this with he and his , and during this discussion the anthropological linguist came into the room.
--- NOTE | 2018-12-26 20:49 | Progress Note ---
Provider Note Provider Note: Cardiology PROGRESS NOTE by Dr. Chelita Zhu on 12/26/2018. SUBJECTIVE: The patient continues to be in atrial fibrillation with controlled ventricular response. His cough is improved. There is no patient is not wheezing anymore. His chest x-ray shows improvement in the basilar pneumonia bilaterally. He still has some cough but is not producing any sputum. There is no PND orthopnea. There is only trace leg edema. The patient has no chest pain or discomfort. There is no arrhythmia seen on the monitor.No bleeding on Eliquis.No TIA or CVA symptoms. PHYSICAL EXAMINATION: The patient is mildly obese. He is well-groomed. In no acute distress. Selected Entries 12/26/18 07:06 Temperature 97.9 F Temperature Oral Source Pulse Rate 79 Respiratory 17 Rate Blood Pressure 122/84 Blood Pressure 96 Mean BP Location Right Arm BP Position Sitting O2 Sat by Pulse 96 Oximetry Oxygen Delivery Room Air Method HEAD: Atraumatic, normocephalic. EYES: Pupils equal round and reactive to light, extraocular movements intact, sclera anicteric, conjunctiva are normal. ENT: TMs normal, nares patent, oropharynx clear without exudates. Moist mucous membranes. NECK: Normal range of motion, supple without lymphadenopathy or JVD. LUNGS: Breath sounds clear to auscultation bilaterally and equal. No wheezes rales or rhonchi. There is no chest wall tenderness HEART: S1-S2 is heard. S1 is of variable intensity. There is no S3 gallop. There is no S4 gallop. There is systolic murmur left sternal border and the apex, there is no rub ABDOMEN: Soft, nontender, normoactive bowel sounds. No guarding, no rebound. No masses appreciated. EXTREMITIES: Normal range of motion, no pitting or edema. No clubbing or cyanosis. NEUROLOGICAL: Cranial nerves II through XII grossly int act. Normal speech, normal gait. There is no focal deficits. Sensations are normal bilaterally. PSYCH: Normal mood, normal affect. His judgment and insight are intact SKIN: Warm, Dry, normal turgor, no rashes or lesions noted. Labs- All tests 24 hr 12/26/18 12/26/18 12/26/18 07:03 10:34 15:12 POC Glucose 166 H 192 H 185 H 12/26/18 21:11 POC Glucose 219 H Renal Ultrasound 12/20/18 00:00 IMPRESSION: NORMAL RENAL AND BLADDER ULTRASOUND. Chest X-Ray 12/20/18 09:04 IMPRESSION: Heterogeneous opacity of the left lung base, concerning for infection or aspiration. Possible small left pleural effusion. Cardiomegaly. Chest/Abdomen CTA 12/20/18 09:11 IMPRESSION: Alveolar consolidation in the left lower lobe concerning for pneumonia. No pulmonary embolus. Chest X-Ray 12/24/18 00:00 IMPRESSION: Persistent left lower lobe pneumonia. The patient has developed small bilateral pleural effusions. Chest X-Ray 12/25/18 00:00 IMPRESSION: Persistent basilar airspace disease left greater than right. Small effusions. Findings are improved when compared to prior study. IMPRESSION/RECOMMENDATION: 1. New onset atrial fibrillation. This is the first episode. Will stop the cardizem plain and switch to cardizem CD 120 mg po daily and increase as tolerated.Continue Eliquis. 2. Acute asthmatic attack. Patient with history of asthma. Continue bronchodilators and steroids. Still resolved. 3. Bibasillar pneumonia. Continue antibiotics. This is improving. 4. Hypertension: Blood pressure well controlled. 5. History of depression: Well-controlled on current antidepressants. Continue the same. 6. Hyperglycemia. Note the patient has no history of diabetes mellitus. Most likely this is steroid-induced hyperglycemia Medications reviewed. Medications adjusted. Management plan and medication regimen discussed with the attending provider on the case. Medical decision making is of high complexity. 40 minutes spent on this patient with more than 50% of time spent in direct patient care. Will follow.
[2018-12-26] MEDS: VANCOMYCIN HCL 1,500 MG in DEXTROSE 5%-WATER 250 ML IV SCH (21:26)
[2018-12-26] MEDS: MONTELUKAST SODIUM 10 MG TABLET PO SCH (21:26)
[2018-12-27] MEDS: DILTIAZEM HCL 30 MG TABLET PO SCH (06:38)
[2018-12-27] MEDS: PIPERACILLIN SODIUM/TAZOBACTAM 4.5 GM in NORMAL SALINE 100 ML IV SCH (06:38)
[2018-12-27] MEDS: PANTOPRAZOLE SODIUM 40 MG TABLET.DR PO SCH (06:39)
[2018-12-27] MEDS: INSULIN LISPRO 100 UNIT/ML 3 ML VIAL SUBCUT SCH (08:41)
[2018-12-27 08:59] VITALS: BP 126/68
--- NOTE | 2018-12-27 09:07 | PDOC DISCHARGE SUMMARY ---
General - Admit/Disc Date/PCP Admission Date/Primary Care Provider: 12/20/18 12:36 Patient admitted on 12/20/2018 for sepsis and pneumonia as primary diagnoses Discharge Date: 12/27/18 - Discharge Diagnosis (1) Asthma Is this a current diagnosis for this admission?: Yes Summary: According to the patient he has had asthma in the past and been on inhalers this shortness of breath can be partially attributed to his asthma, however his primary problem is pneumonia. Patient was put on steroids while in the hospital as well as antibiotics patient was maintained on admission on [place] by nasal cannula sats in the ER on admission on room air were 89%. At the time of discharge patient has no wheezing. 2 saturation today on room air 96% (2) Hypertension Is this a current diagnosis for this admission?: Yes Summary: Prior to coming in patient was on lisinopril and HCTZ combination 28/03.. Patient HCTZ will be discontinued instead he will have Lasix 20 mg a day, his lisinopril will be decreased to 10 mg daily he is being put on Cardizem CD 120 mg daily for his atrial fib (3) A-fib Is this a current diagnosis for this admission?: Yes Summary: Patient was seen in consultation by cardiology, Dr. Lora who initially tried the patient on sotalol however he failed to convert.. Patient was then put on Cardizem 30 mg every 6 hours. At the time of discharge she sent home on CD 120 mg daily and will see Dr. Lora back as an outpatient. This dose may need to be increased and/or the patient may need to be cardioverted as an outpatient (4) Pneumonia Is this a current diagnosis for this admission?: Yes Summary: Patient has been on Vanco and Zosyn since admission, chest x-ray from yesterday is greatly improved. Patient will be DC'd on Levaquin 500 mg 1 daily for 7 days patient has a slightly elevated white count still probably because of the steroids he is been on.. Patient is being weaned off of his steroids and will be off of them in 48 hours. - Additional Information Resuscitation Status: Full Code Discharge Diet: Cardiac Discharge Activity: Balance Activity w/Rest Prescriptions: Diltiazem HCl [Cardizem 30 mg Tablet] 120 mg PO Q6 #130 tablet Prednisone [Deltasone 20 mg Tablet] 20 mg PO DAILY #2 tablet Apixaban [Eliquis 5 mg Tablet] 5 mg PO BID #60 tablet Furosemide [Lasix 20 mg Tablet] 20 mg PO RTDAILYP PRN #30 tablet PRN Reason: Levofloxacin [Levaquin 500 mg Tablet] 500 mg PO DAILY #7 tablet Home Medications: Albuterol Sulfate [Proair Hfa Inhalation Aerosol 8.5 gm Mdi] 1 puff IH Q4 PRN 12/20/18 Budesonide/Formoterol Fumarate [Symbicort Hfa 160-4.5 Mcg Inhaler 6 gm] 2 puff IH Q12 12/20/18 Ergocalciferol (Vitamin D2) [Vitamin D2] 2,000 unit PO DAILY 12/20/18 Fluticasone Propionate [Flovent HFA 220 mcg MDI] 1 puff IH BID 12/20/18 Montelukast Sodium [Singulair 10 mg Tablet] 10 mg PO QHS 12/20/18 Naproxen Sodium [Aleve] 220 mg PO DAILYP PRN 12/20/18 Sertraline HCl [Zoloft] 100 mg PO DAILY 12/20/18 Apixaban [Eliquis 5 mg Tablet] 5 mg PO BID #60 tablet 12/27/18 Diltiazem HCl [Cardizem 30 mg Tablet] 120 mg PO Q6 #130 tablet 12/27/18 Furosemide [Lasix 20 mg Tablet] 20 mg PO RTDAILYP PRN #30 tablet 12/27/18 Levofloxacin [Levaquin 500 mg Tablet] 500 mg PO DAILY #7 tablet 12/27/18 Montelukast Sodium [Singulair 10 mg Tablet] 10 mg PO QHS tablet 12/27/18 Prednisone [Deltasone 20 mg Tablet] 20 mg PO DAILY #2 tablet 12/27/18 History of Present Illness History of Present Illness: FRANTZ WORTHINGTON is a 53 year old male who had sudden onset of fever chills and Rigors. Patient presented he appeared to be septic secondary to pneumonia Hospital Course Hospital Course: Patient was put on vancomycin and Zosyn IV as well as prednisone patient was also given fluids.. Lactic acid on admission was 3.1, BNP was 1320. Patient did have a CT scan of the chest that revealed alveolar consolidation in the left lower lobe concerning for pneumonia but no PE. White count on admission 17,100 on discharge 18.8, however recent chest x-ray done yesterday shows significant improvement of the pneumonia, WBCs are up probably because of steroids. Graph patient is done well in the hospital he and his seems satisfied all of his instructions have been explained to him Dr. Lora has been in to see the patient on almost a daily basis because of his atrial fib. Dr. Lora is can see the patient back in follow-up and adjust his dose of Cardizem CD. Dr. Lora has stated that patient may need to be cardioverted in the future Patient will be just discharged home on Levaquin 500 mg 7 tablets 1 daily, plus Eliquis 5 mg twice daily 2 days of prednisone 20 mg a day, his lisinopril will b e 10 mg daily and a daily dose of Lasix 20 mg a day Physical Exam Vital Signs: Temp Pulse Resp BP Pulse Ox 98.6 F 76 20 110/79 96 12/27/18 03:14 12/27/18 07:00 12/27/18 03:14 12/27/18 03:14 12/27/18 03:14 Intake & Output 12/26/18 12/27/18 12/28/18 06:59 06:59 06:59 Intake Total 2780 1362 350 Output Total 0 Balance 2780 1362 350 Weight 111.1 kg 103.5 kg General appearance: PRESENT: no acute distress, other - Sitting up talking in full sentences in no distress smiling and happy to be going home Respiratory exam: PRESENT: clear to auscultation antoine. ABSENT: rales, rhonchi, wheezes Cardiovascular exam: PRESENT: RRR. ABSENT: diastolic murmur, rubs, systolic murmur Neurological exam: PRESENT: alert, awake, oriented to person, oriented to place, oriented to time, oriented to situation, CN II-XII grossly intact. ABSENT: motor sensory deficit Psychiatric exam: PRESENT: appropriate affect, normal mood. ABSENT: homicidal ideation, suicidal ideation Results Laboratory Results: 12/25/18 09:40 12/25/18 09:40 12/20/18 12/20/18 12/20/18 07:12 07:12 15:02 Creatine Kinase 276 H CK-MB (CK-2) 4.19 Troponin I < 0.012 < 0.012 NT-Pro-B Natriuret Pep 1320 H Impressions: Renal Ultrasound 12/20/18 00:00 IMPRESSION: NORMAL RENAL AND BLADDER ULTRASOUND. Chest/Abdomen CTA 12/20/18 09:11 IMPRESSION: Alveolar consolidation in the left lower lobe concerning for pneumonia. No pulmonary embolus. Chest X-Ray 12/25/18 00:00 IMPRESSION: Persistent basilar airspace disease left greater than right. Small effusions. Findings are improved when compared to prior study. Qualifiers - * PATIENT BEING DISCHARGED WITH ANY OF THE FOLLOWING DIAGNOSIS: No Acute Heart Failure - Is this a Heart Failure Patient?: No Plan Time Spent: Greater than 30 Minutes - As outlined above
[2018-12-27] MEDS: FUROSEMIDE 20 MG TABLET PO SCH (09:39)
[2018-12-27] MEDS: PREDNISONE 20 MG TABLET PO SCH (09:39)
[2018-12-27] MEDS: APIXABAN 5 MG TABLET PO SCH (09:40)
[2018-12-27] MEDS: VANCOMYCIN HCL 1,500 MG in DEXTROSE 5%-WATER 250 ML IV SCH (09:40)
[2018-12-27] MEDS: SERTRALINE HCL 50 MG TABLET PO SCH (09:40)
[2018-12-27] MEDS: CHOLECALCIFEROL (D3) 1,000 UNIT (25 MCG) TABLET PO SCH (09:40)
[2018-12-27] MEDS: DOCUSATE SODIUM 100 MG CAPSULE PO SCH (09:40)
--- NOTE | 2018-12-27 22:17 | Progress Note ---
Provider Note Provider Note: CARDIOLOGY PROGRESS NOTE by Dr. Chelita Lora on 12/27/2018. SUBJECTIVE: The patient continues to be in atrial fibrillation. He has no further shortness of breath or wheezing. He still has some trace leg edema. There is no chest pain or discomfort. There is no bleeding on Eliquis. There is no TIA CVA symptoms. The patient's cardiac status is stable for the patient to be discharged. PHYSICAL EXAMINATION: The patient is mildly obese. He is well-groomed. In no acute distress. Selected Entries 12/27/18 12/27/18 08:50 08:56 Temperature 98.6 F Pulse Rate 76 Respiratory 20 Rate Blood Pressure 126/68 H [Right Upper Arm] O2 Sat by Pulse 96 Oximetry Oxygen Delivery Room Air Method ( includes room air) HEAD: Atraumatic, normocephalic. EYES: Pupils equal round and reactive to light, extraocular movements intact, sclera anicteric, conjunctiva are normal. ENT: TMs normal, nares patent, oropharynx clear without exudates. Moist mucous membranes. NECK: Normal range of motion, supple without lymphadenopathy or JVD. LUNGS: Breath sounds clear to auscultation bilaterally and equal. No wheezes rales or rhonchi. There is no chest wall tenderness HEART: S1-S2 is heard. S1 is of variable intensity. There is no S3 gallop. There is no S4 gallop. There is systolic murmur left sternal border and the apex, there is no rub ABDOMEN: Soft, nontender, normoactive bowel sounds. No guarding, no rebound. No masses appreciated. EXTREMITIES: Normal range of motion, no pitting or edema. No clubbing or cyanosis. NEUROLOGICAL: Cranial nerves II through XII grossly int act. Normal speech, normal gait. There is no focal deficits. Sensations are normal bilaterally. PSYCH: Normal mood, normal affect. His judgment and insight are intact SKIN: Warm, Dry, normal turgor, no rashes or lesions noted. Labs- All tests 24 hr 12/27/18 12/27/18 07:07 10:52 POC Glucose 168 H 155 H Renal Ultrasound 12/20/18 00:00 IMPRESSION: NORMAL RENAL AND BLADDER ULTRASOUND. Chest X-Ray 12/20/18 09:04 IMPRESSION: Heterogeneous opacity of the left lung base, concerning for infection or aspiration. Possible small left pleural effusion. Cardiomegaly. Chest/Abdomen CTA 12/20/18 09:11 IMPRESSION: Alveolar consolidation in the left lower lobe concerning for pneumonia. No pulmonary embolus. Chest X-Ray 12/24/18 00:00 IMPRESSION: Persistent left lower lobe pneumonia. The patient has developed small bilateral pleural effusions. Chest X-Ray 12/25/18 00:00 IMPRESSION: Persistent basilar airspace disease left greater than right. Small effusions. Findings are improved when compared to prior study. IMPRESSION/RECOMMENDATION: 1. New onset atrial fibrillation. This is the first episode. Will stop the cardizem plain and switch to cardizem CD 120 mg po 2 times daily and increase as tolerated.Continue Eliquis. 2. Acute asthmatic attack. Patient with history of asthma. Continue bronchodilators and steroids. Still resolved. 3. Bibasillar pneumonia. Continue antibiotics. This is improving. 4. Hypertension: Blood pressure well controlled. 5. History of depression: Well-controlled on current antidepressants. Continue the same. 6. Hyperglycemia. Note the patient has no history of diabetes mellitus. Most likely this is steroid-induced hyperglycemia Medications reviewed. Medications adjusted. Management plan and medication regimen discussed with the attending provider on the case. Medical decision making is of moderate complexity. Will discharge the patient on Cardizem CD 120 mg p.o. twice daily. Cardiac status is stable. Okay to discharge the patient. Will sign off. Will follow the patient in the office.
== END 2018-12-27 11:10 | disposition home or self-care (01) | DRG 871 ==
LOC: ER 08:41 → EH 12:36 → 3W 17:16
PROVIDERS: ADMIT Internal Medicine; ATTEND Internal Medicine
DX: A41.9 Sepsis, unspecified organism (principal); J18.1 Lobar pneumonia, unspecified organism; J96.21 Acute and chronic respiratory failure with hypoxia; N17.9 Acute kidney failure, unspecified; J45.901 Unspecified asthma with (acute) exacerbation; I48.0 Paroxysmal atrial fibrillation; I45.10 Unspecified right bundle-branch block; E66.9 Obesity, unspecified; I12.9 Hypertensive chronic kidney disease with stage 1 through stage 4 chronic kidney disease, or unspecified chronic kidney disease; N18.9 Chronic kidney disease, unspecified; F32.9 Major depressive disorder, single episode, unspecified; T38.0X5A Adverse effect of glucocorticoids and synthetic analogues, initial encounter; R60.9 Edema, unspecified; R74.8 Abnormal levels of other serum enzymes; R73.9 Hyperglycemia, unspecified; Z79.01 Long term (current) use of anticoagulants; Z79.51 Long term (current) use of inhaled steroids; Z88.6 Allergy status to analgesic agent; Z91.018 Allergy to other foods; Z68.31 Body mass index [BMI] 31.0-31.9, adult
CPT/HCPCS: 36415; 71045; 71046; 71275; 76770; 80048; 80053; 80061; 80202; 81001; 82550; 82553; 82565; 82803; 82962; 83036; 83605; 83880; 84443; 84484; 85025; 87040; 87086; 87804; 93005; 93010; 94640; 94667; 94668; 94799; 96361; 96365; 96368; 96375; 99285; J1815; J2543; J2920; J2930; J3010; J3370; J3490; J7030; J7050; J7060; J7512; J7620

== ENCOUNTER 2019-01-03 02:10 | Emergency (ER) | payer BC ==
[2019-01-03] MEDS ORDERED: MORPHINE SULFATE 10 MG/ML INJ IV ONE ×2 (02:51→03:32)
[2019-01-03] MEDS ORDERED: NORMAL SALINE 500 ML IV ONE (02:51)
[2019-01-03 03:02] LABS: APPEARANCE,URINE CLEAR; BILIRUBIN,URINE NEGATIVE (NEGATIVE); COLOR,URINE YELLOW; GLUCOSE, URINE NEGATIVE (NEGATIVE); KETONES,URINE NEGATIVE (NEGATIVE); LEUKOCYTE ESTERASE,URINE NEGATIVE (NEGATIVE); NITRITE,URINE NEGATIVE (NEGATIVE); PROTEIN,URINE NEGATIVE (NEGATIVE); UROBILINOGEN,URINE NEGATIVE mg/dL (<2.0)
[2019-01-03 03:18] LABS: ABSOLUTE BASOPHILS # (AUTO) 0.1 10^3/uL (0.0-0.2); ABSOLUTE EOSINOPHILS # (AUTO) 0.1 10^3/uL (0.0-0.6); ABSOLUTE LYMPHOCYTES (AUTO) 1.8 10^3/uL (0.5-4.7); ABSOLUTE MONOCYTES (AUTO) 1.9 10^3/uL (0.1-1.4); ABSOLUTE NEUT (AUTO) 12.8 10^3/uL (1.7-8.2); BASOPHILS % (AUTO) 0.4 % (0-2); EOSINOPHILS % (AUTO) 0.3 % (0-6); HEMATOCRIT 41.6 % (37.9-51.0); HEMOGLOBIN 13.9 g/dL (13.5-17.0); LYMPHOCYTES % (AUTO) 10.9 % (13-45); MEAN CORPUSCULAR HEMOGLOBIN 29.7 pg (27.0-33.4); MEAN CORPUSCULAR HGB CONC 33.4 g/dL (32.0-36.0); MEAN CORPUSCULAR VOLUME 89 fl (80-97); MONOCYTES % (AUTO) 11.5 % (3-13); PLATELET COUNT 206 10^3/uL (150-450); RED BLOOD COUNT 4.67 10^6/uL (4.35-5.55); RED CELL DISTRIBUTION WIDTH 14.4 % (11.5-14.0); SEGMENTED NEUTROPHILS % (AUTO) 76.9 % (42-78); TOTAL CELLS COUNTED % (AUTO) 100 %; WHITE BLOOD COUNT 16.6 10^3/uL (4.0-10.5)
[2019-01-03 03:34] LABS: ANION GAP 10 (5-19); BLOOD UREA NITROGEN 32 mg/dL (7-20); CARBON DIOXIDE 25 mmol/L (22-30); CHLORIDE 102 mmol/L (98-107); GLUCOSE 124 mg/dL (75-110); POTASSIUM 4.4 mmol/L (3.6-5.0)
--- NOTE | 2019-01-03 04:49 | RADIOLOGY REPORT (SQ) ---
CLINICAL HISTORY: Severe L flank pain, anticoagulated COMPARISON: COMPARISON: December 20, 2018. TECHNIQUE: CT ABDOMEN PELVIS WITH IV CONTRAST on 01/03/2019 2:50 AM CDT This exam was performed according to our departmental dose-optimization program, which includes automated exposure control, adjustment of the mA and/or kV according to patient size and/or use of iterative reconstruction technique. FINDINGS: There is left basilar airspace disease. There is a trace left pleural effusion . Abdomen: The liver is normal in appearance. There is no biliary dilatation. Gallbladder is normal in appearance. The pancreas and spleen are normal in appearance. The adrenal glands and kidneys are unremarkable. Abdominal aorta is normal in course and caliber without aneurysm. There is no free air. There is no retroperitoneal adenopathy. Pelvis: There is no bowel obstruction. Urinary bladder is unremarkable. There is no free fluid. Appendix is normal. Skeleton: There are no acute osseous findings. No suspicious bony lesions. IMPRESSION: Improving left basilar pneumonia. No focal abnormalities within the abdomen or pelvis.
[2019-01-03] MEDS ORDERED: HYDROMORPHONE HCL INJ/PF 2 MG/ML AMPULE IV ONE (04:51)
--- NOTE | 2019-01-03 05:03 | ER Document Report ---
ED General - General Chief Complaint: Flank Pain Stated Complaint: FLANK PAIN Time Seen by Provider: 01/03/19 02:33 Primary Care Provider: FERNANDA DEWEY MD [Primary Care Provider] - Follow up as needed TRAVEL OUTSIDE OF THE [place] IN LAST 30 DAYS: No - HPI Notes: 53-year-old male presents with left-sided flank pain. Patient describes gradual onset of left-sided lower flank pain yesterday. Increasingly more severe, became so severe tonight/this morning that he is come to the emergency department. No known history of renal colic. Sharp, throbbing, sometimes worse with motion but largely unrelated to motion. Nausea but no vomiting. No fever, chills or sweats. Patient was admitted to the hospital last week and subsequently discharged after being treated for pneumonia. During that stay he had extensive radiographic imaging including CT angiogram of the chest which did not show any vascular abnormality. Patient has no fever. No frequency urgency or dysuria. No testicular pain. No abdominal pain. No other modifying factors, no other associated symptoms, no other provocative or palliative factors. While in the hospital he was diagnosed with A. fib and started on Eliquis. patient had no trauma - Related Data Allergies/Adverse Reactions: codeine Allergy (Verified 12/20/18 08:42) nut - unspecified Allergy (Verified 12/20/18 17:40) tomatoes Allergy (Uncoded 12/20/18 17:40) Past Medical History - Social History Smoking Status: Never Smoker Chew tobacco use (# tins/day): No Frequency of alcohol use: None Drug Abuse: None Family History: Reviewed & Not Pertinent Patient has suicidal ideation: No Patient has homicidal ideation: No - Past Medical History Cardiac Medical History: Reports: Hx Atrial Fibrillation Pulmonary Medical History: Reports: Hx Asthma, Hx Pneumonia Review of Systems - Review of Systems Notes: Review of systems as in the history of present illness, otherwise negative x 10 systems. Physical Exam - Vital signs Vitals: Temp Pulse Resp BP Pulse Ox 97.7 F 96 19 108/81 98 01/03/19 02:20 01/03/19 02:20 01/03/19 02:20 01/03/19 02:20 01/03/19 02:20 - Notes Notes: General: Well developed . Uncomfortable in appearance. HEENT: Normocephalic, atraumatic. Pupils equal round reactive to light. No JVD . Chest: No trauma. Respiratory: Good air exchange, normal excursion. Cardiac: Regular rhythm. No murmurs or gallops. Abdomen: Soft, benign. Nondistended. Nontender. Back: No asymmetry or gross abnormality. No CVAT. No abnormality about the skin or back. There is no obvious trauma, no bruising. No zoster form rash. Motor: Grossly normal power and tone. Neurologic: Alert, nonfocal. Cranial nerves II-12 are intact. Sensation intact. Vascular: Well perfused. Normal peripheral pulses. Upper and lower extremity pulses are 2+ and symmetric. Skin: No petechiae or purpura. Course - Re-evaluation Re-evalutation: 01/03/19 05:12 53-year-old male with severe flank pain unclear etiology. May be occult strain, consider renal colic, given his use of Eliquis consider retroperitoneal hematoma or hemorrhage. Less likely pyelonephritis. This is a low pain just over his posterior back crest. It is nonpleuritic, not in his chest, doubt pulmonary embolism. Plan to proceed with basic laboratory evaluation, IV analgesics, urine, CT abdomen and pelvis with contrast, reevaluate. 01/03/19 05:14 Labs reviewed. CBC shows leukocytosis, however this is decreasing from discharge. Chemistries unremarkable, creatinine is baseline. Urine unremarkable. CT imaging is obtained. There is no evidence of stone, hydroureter, hydroneph rosis, aneurysm or dissection. No evidence of appendicitis or intra-abdominal emergency. The pneumonia is improving. Clinically, the patient has no fever, is not had cough, he does not have any cli nical signs that would suggest recurrent or worsening pneumonia. He is received several doses of pain medicine. This time I do not have a clear etiology for his symptoms. However, there does not appear to be any evidence of vascular emergency. There is no evidence of infection, radiculopathy, spinal cord compression, intra-abdominal or retroperitoneal bleed, herpes zoster, ischemic etiology or other emergent etiology. Patient is going to follow-up with his primary care doctor at 11 AM this morning, will treat outpatient with a short course of analgesics, should he develop fever or worsening symptoms he will return. - Vital Signs Vital signs: Temp Pulse Resp BP Pulse Ox 97.7 F 96 19 108/81 98 01/03/19 02:20 01/03/19 02:20 01/03/19 02:20 01/03/19 02:20 01/03/19 02:20 - Laboratory Result Diagrams: 01/03/19 03:05 01/03/19 03:05 Laboratory results interpreted by me: 01/03/19 01/03/19 03:05 03:05 WBC 16.6 H RDW 14.4 H Lymph % (Auto) 10.9 L Absolute Neuts (auto) 12.8 H Absolute Monos (auto) 1.9 H BUN 32 H Creatinine 1.31 H Est GFR (MDRD) Non-Af 57 L Glucose 124 H Discharge - Discharge Clinical Impression: Flank pain Condition: Stable Disposition: HOME, SELF-CARE Instructions: Flank Pain ([facility]) Prescriptions: Oxycodone HCl/Acetaminophen [Percocet 5-325 mg Tablet] 1 - 2 tab PO Q4H PRN #15 tablet PRN Reason: Referrals: FERNANDA DEWEY MD [Primary Care Provider] - Follow up as needed
[2019-01-03] MEDS ORDERED: ONDANSETRON HCL INJ/PF 4 MG/2 ML SDV IV ONE (05:34)
[2019-01-03 06:00] VITALS: BP 118/79
--- NOTE | 2019-01-03 06:45 | RADIOLOGY REPORT (SQ) ---
CLINICAL HISTORY: Flank pain, recent PNA COMPARISON: 12/24/2018. TECHNIQUE: XR CHEST 2 VIEWS 01/03/2019 3:32 AM CDT FINDINGS: The heart is mildly enlarged. There is mild bibasilar airspace disease. There are small pleural effusions. There is no pneumothorax. There are no acute osseous findings. IMPRESSION: Slightly worsening bibasilar, especially left-sided pneumonia.
== END 2019-01-03 06:00 | disposition home or self-care (01) ==
LOC: ER 02:10
DX: R10.9 Unspecified abdominal pain (principal); I48.91 Unspecified atrial fibrillation; Z88.6 Allergy status to analgesic agent; Z79.01 Long term (current) use of anticoagulants
CPT/HCPCS: 96376; 99284; 96361; 96374; 96375; 36415; 85025; 80048; 81001; 71046; 74177; J2270; J1170; J2405; J7040